=== PATIENT | female | born 1945 | race Caucasian/White ===

== ENCOUNTER 2021-05-26 11:56 | Observation (INO) ==
[2021-05-26 12:37] LABS: Basophils # (auto) 0.02 K/uL (0-0.2); Basophils % (auto) 0.2 %; Eosinophils # (auto) 0.01 K/uL (0-0.5); Eosinophils % (auto) 0.1 %; Hematocrit (blood only) 39.1 % (37-47); Immature Granulocytes # (auto) 0.01 K/uL (0.00-0.02); Immature Granulocytes % (auto) 0.1 %; Lymphocytes # (auto) 0.76 K/uL (1.2-3.4); Lymphocytes % (auto) 8.6 %; Mean Corpuscular Hemoglobin 29.3 pg (25-34); Mean Corpuscular Hgb Conc 33.2 g/dL (32-36); Mean Corpuscular Volume 88.3 fL (80-100); Mean Platelet Volume 9.9 fL (7.4-10.4); Monocytes # (auto) 0.44 K/uL (0.11-0.59); Neutrophils # (auto) 7.59 K/uL (1.4-6.5); Platelet Count 351 K/uL (130-400); RDW Coefficient of Variation 14.4 % (11.5-14.5); RDW Standard Deviation 46.6 fL (36.4-46.3); Red Blood Count 4.43 M/uL (4.2-5.4); White Blood Count 8.83 K/uL (4.8-10.8)
[2021-05-26 12:49] LABS: Appearance Urine Cloudy (Clear); Bacteria Urine Automated Negative (Negative); Bilirubin Urine Negative (Negative); Blood Urine Negative (Negative); Color Urine Dark Yellow; Epithelial Cell Urine Auto >30 /lpf (0-5); Glucose Urine UA 2+ (Negative); Ketones Urine 2+ (Negative); Leukocyte Esterase Urine 1+ (Negative); Nitrite Urine Negative (Negative); Protein Urine 1+ (Negative); RBC Urine Automated 0-4 /hpf (0-4); Specific Gravity Urine 1.031 (1.000-1.030); Urobilinogen Urine Negative (Negative); WBC Urine Automated >30 /hpf (0-5); pH Urine 5.5 (4.5-7.5)
[2021-05-26 12:55] LABS: Alanine Aminotransferase 47 (12-78); Aspartate Aminotransferase 30 U/L (15-37); BUN Creatinine Ratio 17.1 (10-20); Blood Urea Nitrogen 23 mg/dl (7-18); Calcium 9.8 mg/dl (8.5-10.1); Carbon Dioxide 23 mmol/L (21-32); Chloride 105 mmol/L (98-107); Est GFR (African American) 43.7 ml/min; Est GFR (Non-African American) 37.7 ml/min; Glucose 83 mg/dl (70-99); Sodium 138 mmol/L (136-145)
[2021-05-26 13:12] LABS: Alkaline Phosphatase 79 U/L (45-117); Bilirubin,Total 1.2 mg/dl (0.2-1); Globulin 4.2 gm/dl (2.5-4.0); Thyroid Stimulating Hormone 0.635 uIu/ml (0.300-4.500); Total Protein 8.2 gm/dl (6.4-8.2); Troponin I 0.368 ng/ml (0-0.045)
[2021-05-26] MEDS ORDERED: SODIUM CHLORIDE 0.9% 1000ML 500 ML IV ONE (13:14)
--- NOTE | 2021-05-26 13:23 | Emergency Department Note ---
Impression & Plan Weakness, Elevated troponin, Sweating, Herpes zoster ED Provider Note NAME: DIONNE OG AGE: 76 SEX: F : 1945 ARRIVES VIA: Walk-In INFORMANT: [Patient][son] ED PROVIDER(S): [Darrick Carvajal MD] CHIEF COMPLAINT: Cardiac assessment HISTORY OF PRESENT ILLNESS: The patient is a 76-year-old female who presents to the ER with several complaints. Yesterday, she was not as active and seemed more tired and fatigued. She complained of a decreased appetite. This morning, she woke up sweaty and was dizzy and weak. She seemed pale. The family and her caregiver at home noticed swelling around the right eye. The patient denies any cough or congestion. She is not short of breath. She currently denies any pain. There has been no reported vomiting or diarrhea. No urinary complaints. The patient did have an HI a few months ago, there was no reported chest pain today. Of note, the son provides most of the history. The patient does have some dementia. Given her dementia, no further history obtainable. REVIEW OF SYSTEMS: Unobtainable given her dementia. PMHx/PSHx: See Below SOCIAL HISTORY: See Below. PHYSICAL EXAM: GENERAL: Patient is in no acute distress. HEENT: No acute trauma, normocephalic atraumatic, mucous membranes moist, no na tan congestion, no scleral icterus. No conjunctivitis. Fluorescein staining of the right eye does not show any dendritic lesion. NECK: No stridor, no adenopathy, no meningismus, trachea is midline. LUNGS: Clear to auscultation bilaterally, no wheeze, no rhonchi, breath sounds equal. HEART: 2/6 systolic murmur, regular rate and rhythm. ABDOMEN: Soft, nontender, bowel sounds positive, no hernias, no peritonitis. EXTREMITIES: No cyanosis or edema, full range of motion of all the joints without pain or difficulty, no signs for acute trauma. NEUROLOGIC: Awake and alert, follows commands. No facial droop or speech slur. No cerebellar deficit or extremity drift. SKIN: Patient has a slightly raised, somewhat scaly, erythematous, blotchy rash around her right eye and there are a few lesions on the superior right scalp. No drainage. DIFFERENTIAL DIAGNOSIS: Herpes zoster, stroke, dehydration, sepsis, bacteremia, UTI, pneumonia, HI, electrolyte imbalance, anemia, among others EMERGENCY DEPARTMENT COURSE/PROCEDURES: ECG: Indication was weakness. The ECG shows a normal sinus rhythm with a left bundle branch block. The rate is 87. There is some subtle ST elevation in the anterior leads which I believe is secondary to the left bundle branch block. There is no PVC. The QTc is 500. No old ECGs available for comparison. Continuous Cardiac Monitoring: An order was placed for continuous cardiac monitoring. The monitor shows a rate of 84 with normal sinus rhythm. MEDICAL DECISION MAKING: There is no leukocytosis or worrisome anemia. There is a normal platelet count. There is some subtle renal insufficiency/dehydration with a creatinine of 1.36. No concerning electrolyte abnormality. Lactic acid level was not elevated making sepsis less likely. No concerning liver enzyme elevation. Patient appeared to be in a euthyroid state. Urinalysis did not show evidence for infection, some contamination was seen though. Covid testing returned negative. Chest film did not show any obvious pneumonia. Brain CT showed no acute bleed or mass-effect. ECG showed a sinus rhythm, no obvious ischemia. Cardiac enzyme testing x1 is elevated. This elevation could be consistent with cardiac injury or strain. On exam, the patient appeared to have herpes zoster around her right eye and a few lesions noted on her scalp. No focal neurologic findings. The patient received IV saline, 500 cc. She was given oral Valtrex. The patient presents with weakness, some lethargy and a rash on her right face. She has a history of a recent HI and had a bout of sweating earlier today. The patient's work-up suggests potential cardiac injury. She also appears to have herpes zoster--of note, no corneal lesions seen. I do think further care in the hospital is warranted. I did speak with the patient and case management. The on-call hospitalist was consulted. Past Med/Surg History Medical History CAD (coronary artery disease) Dementia HTN (hypertension) Social History Smoking Status: Never smoker Preferred Language: Faroese Feels Safe at Home: Yes Allergies Allergies Allergy/AdvReac Type Severity Reaction Status Date / Time No Known Allergies Allergy Unverified 05/26/21 14:56 Home Meds Home Medications Medication Instructions Recorded Confirmed alendronate 35 mg tablet 35 mg PO MO 05/26/21 05/26/21 aspirin 81 mg tablet,delayed 81 mg PO DAILY 05/26/21 05/26/21 release atorvastatin 80 mg tablet 80 mg PO PM 05/26/21 05/26/21 brimonidine 0.2 %-timolol 0.5 % 1 drp OPR BID 05/26/21 05/26/21 eye drops (Combigan) carvedilol 6.25 mg tablet 6.25 mg PO BID 05/26/21 05/26/21 cholecalciferol (vitamin D3) 50 50 mcg PO DAILY 05/26/21 05/26/21 mcg (2,000 unit) tablet (Vitamin D3) dapagliflozin 10 mg tablet 10 mg PO QAM 05/26/21 05/26/21 donepezil 5 mg tablet 5 mg PO HS 05/26/21 05/26/21 insulin glargine 100 unit/mL (3 20 unit SUBCUT QAM 05/26/21 05/26/21 mL) subcutaneous pen (bunkersofaaglar KwikPen U-100 Insulin) isosorbide mononitrate 30 mg 30 mg PO QAM 05/26/21 05/26/21 tablet,extended release 24 hr linagliptin 5 mg tablet (Tradjenta) 5 mg PO QPM 05/26/21 05/26/21 losartan 25 mg tablet 25 mg PO DAILY 05/26/21 05/26/21 metformin 1,000 mg tablet 1,000 mg PO BID 05/26/21 05/26/21 ticagrelor 90 mg tablet (Brilinta) 90 mg PO Q12H 05/26/21 05/26/21 Results & Data (ED) Vital Signs Vital Signs - 24 hr 05/26/21 11:59 05/26/21 12:54 Temperature 36.2 C L Temperature Source Temporal Artery Scan Pulse Rate 95 H Pulse Rate [Left Apical] 84 Pulse Rhythm [Left Apical] Regular Pulse Strength [Left Apical] Normal Respiratory Rate 18 16 Respiratory Effort / Characteristics Non-Labored Non-Labored Respiratory Depth Normal Normal Respiratory Pattern Regular Blood Pressure 127/80 Blood Pressure [Left Arm] 142/89 H Blood Pressure Mean 95 Blood Pressure Mean [Left Arm] 106 Blood Pressure Position [Left Arm] Sitting Pulse Oximetry 97 97 Oxygen Delivery Method Room Air Room Air Sepsis Recent Fever Within 48 Hours No Sepsis New/Unexplained Change in Mental Status No Sepsis Action Taken by Nursing No Action Required Home Medications Current Medication List: was personally reviewed by me Laboratory Data Attestation: I reviewed the patient's lab results. Result diagrams: 05/26/21 12:25 05/26/21 12:25 Lab Results 05/26/21 05/26/21 05/26/21 Range/Units 12:25 12: 12:25 WBC 8.83 (4.8-10.8) K/uL RBC 4.43 (4.2-5.4) M/uL Hgb 13.0 (12.0-16.0) g/dL Hct 39.1 (37-47) % MCV 88.3 (80-100) fL MCH 29.3 (25-34) pg MCHC 33.2 (32-36) g/dL RDW Std Deviation 46.6 H (36.4-46.3) fL RDW Coeff of Josh 14.4 (11.5-14.5) % Plt Count 351 (130-400) K/uL MPV 9.9 (7.4-10.4) fL Immature Gran % (Auto) 0.1 % Neut % (Auto) 86.0 % Lymph % (Auto) 8.6 % Park % (Auto) 5.0 % Eos % (Auto) 0.1 % Baso % (Auto) 0.2 % Neut # (Auto) 7.59 H (1.4-6.5) K/uL Lymph # (Auto) 0.76 L (1.2-3.4) K/uL Park # (Auto) 0.44 (0.11-0.59) K/uL Eos # (Auto) 0.01 (0-0.5) K/uL Baso # (Auto) 0.02 (0-0.2) K/uL Immature Gran # (Auto) 0.01 (0.00-0.02) K/uL Sodium 138 (136-145) mmol/L Potassium 4.0 (3.5-5.1) mmol/L Chloride 105 (98-107) mmol/L Carbon Dioxide 23 (21-32) mmol/L Anion Gap 11.0 (3-11) BUN 23 H (7-18) mg/dl Creatinine 1.36 H (0.6-1.2) mg/dl Est Cr Clr Drug Dosing Not Reportable Est GFR ( Amer) 43.7 ml/min Est GFR (Non-Af Amer) 37.7 ml/min BUN/Creatinine Ratio 17.1 (10-20) Glucose 83 (70-99) mg/dl Lactate (0.4-2.0) mmol/L Calcium 9.8 (8.5-10.1) mg/dl Total Bilirubin 1.2 H (0.2-1) mg/dl AST 30 (15-37) U/L ALT 47 (12-78) Alkaline Phosphatase 79 (45-117) U/L Troponin I 0.368 H* (0-0.045) ng/ml Total Protein 8.2 (6.4-8.2) gm/dl Albumin 4.0 (3.4-5.0) gm/dl Globulin 4.2 H (2.5-4.0) gm/dl Albumin/Globulin Ratio 1.0 (0.9-2) TSH 0.635 (0.300-4.500) uIu/ml Urine Color Dark Yellow Urine Appearance Cloudy A (Clear) Urine pH 5.5 (4.5-7.5) Ur Specific [place] 1.031 H (1.000-1.030) Urine Protein 1+ H (Negative) Urine Glucose (UA) 2+ H (Negative) Urine Ketones 2+ H (Negative) Urine Blood Negative (Negative) Urine Nitrite Negative (Negative) Urine Bilirubin Negative (Negative) Urine Urobilinogen Negative (Negative) Ur Leukocyte Esterase 1+ H (Negative) Urine WBC (Auto) >30 H (0-5) /hpf Urine RBC (Auto) 0-4 (0-4) /hpf U Hyaline Cast (Auto) 5-10 H (0-5) /lpf U Epithel Cells (Auto) >30 H (0-5) /lpf Urine Bacteria (Auto) Negative (Negative) Granular Casts 1-5 H (0) /lpf SARS-CoV-2, RNA, NAAT (NEGATIVE) 05/26/21 05/26/21 Range/Units 13:38 14:40 WBC (4.8-10.8) K/uL RBC (4.2-5.4) M/uL Hgb (12.0-16.0) g/dL Hct (37-47) % MCV (80-100) fL MCH (25-34) pg MCHC (32-36) g/dL RDW Std Deviation (36.4-46.3) fL RDW Coeff of Josh (11.5-14.5) % Plt Count (130-400) K/uL MPV (7.4-10.4) fL Immature Gran % (Auto) % Neut % (Auto) % Lymph % (Auto) % Park % (Auto) % Eos % (Auto) % Baso % (Auto) % Neut # (Auto) (1.4-6.5) K/uL Lymph # (Auto) (1.2-3.4) K/uL Park # (Auto) (0.11-0.59) K/uL Eos # (Auto) (0-0.5) K/uL Baso # (Auto) (0-0.2) K/uL Immature Gran # (Auto) (0.00-0.02) K/uL Sodium (136-145) mmol/L Potassium (3.5-5.1) mmol/L Chloride (98-107) mmol/L Carbon Dioxide (21-32) mmol/L Anion Gap (3-11) BUN (7-18) mg/dl Creatinine (0.6-1.2) mg/dl Est Cr Clr Drug Dosing Est GFR ( Amer) ml/min Est GFR (Non-Af Amer) ml/min BUN/Creatinine Ratio (10-20) Glucose (70-99) mg/dl Lactate 1.1 (0.4-2.0) mmol/L Calcium (8.5-10.1) mg/dl Total Bilirubin (0.2-1) mg/dl AST (15-37) U/L ALT (12-78) Alkaline Phosphatase (45-117) U/L Troponin I (0-0.045) ng/ml Total Protein (6.4-8.2) gm/dl Albumin (3.4-5.0) gm/dl Globulin (2.5-4.0) gm/dl Albumin/Globulin Ratio (0.9-2) TSH (0.300-4.500) uIu/ml Urine Color Urine Appearance (Clear) Urine pH (4.5-7.5) Ur Specific [place] (1.000-1.030) Urine Protein (Negative) Urine Glucose (UA) (Negative) Urine Ketones (Negative) Urine Blood (Negative) Urine Nitrite (Negative) Urine Bilirubin (Negative) Urine Urobilinogen (Negative) Ur Leukocyte Esterase (Negative) Urine WBC (Auto) (0-5) /hpf Urine RBC (Auto) (0-4) /hpf U Hyaline Cast (Auto) (0-5) /lpf U Epithel Cells (Auto) (0-5) /lpf Urine Bacteria (Auto) (Negative) Granular Casts (0) /lpf SARS-CoV-2, RNA, NAAT NEGATIVE (NEGATIVE) Administered Medications Discontinued Medications Sodium Chloride (Nss 1000ml) 500 mls @ 999 mls/hr IV .Q31M ONE Stop: 05/26/21 13:44 Last Infusion: 05/26/21 15:53 Dose: 0 mls/hr Documented by: [id number] Admin: 05/26/21 14:23 Dose: 999 mls/hr Documented by: [id number] Valacyclovir HCl (Valacyclovir Hcl 500 Mg Tablet) 1,000 mg PO NOW ONE Stop: 05/26/21 14:32 Last Admin: 05/26/21 14:37 Dose: 1,000 mg Documented by: [id number] Imaging Data Radiologist's Impression: Head CT 05/26/21 13:12 CT head/brain wo con CLINICAL HISTORY: 76 years-old Female with weakness. Acute weakness with diz ziness TECHNIQUE: Multiple axial CT images of the head were obtained without contrast. A dose lowering technique was utilized adhering to the principles of ALARA. CT DOSE: 537.48 mGy.cm COMPARISON: None. FINDINGS: No acute intracranial hemorrhage, midline shift, intracranial mass, hydrocephalus, territorial ischemia or abnormal extra-axial collection. Age-related involutional changes with ex vacuo ventriculomegaly. White matter hypodensities suggest chronic microvascular ischemic disease. Senescent calcifications of the basal ganglia. Cerebral vascular calcifications. The calvarium is intact. Prior bilateral lens repair. The paranasal sinuses, mastoid air cells, and middle ear cavities are clear. IMPRESSION: No acute intracranial abnormality. ACT 112: Negative or not required by law. The above report was generated using voice recognition software. It may contain grammatical, syntax or spelling errors. Electronically signed by: Lorenzo Salcedo M.D. 05/26/2021 2:10 PM Chest X-Ray 05/26/21 13:14 XR chest 1V portable HISTORY: 76 years-old Female weakness . Acute weakness COMPARISON: None TECHNIQUE: AP view of the chest FINDINGS: Cardiac silhouette is upper limits of normal in size with coronary arterial stents. No pneumothorax, large pleural effusion or overt pulmonary edema. Minimal atelectasis/scarring of the left lung base. Degenerative changes of the shoulders and spine. Minimal upper thoracic levoscoliosis. IMPRESSION: No acute process. ACT 112: Negative or not required by law. The above report was generated using voice recognition software. It may contain grammatical, syntax or spelling errors. Electronically signed by: Lorenzo Salcedo M.D. 05/26/2021 1:33 PM Discharge Plan Visit Data Chief Complaint: Cardiac Assessment Stated Complaint: DIZZY,TROUBLE WALKING,SWEATING,HX HEART PROBLEMS ED Provider: Darrick Carvajal Discharge Problem: Weakness, Elevated troponin, Sweating, Herpes zoster Patient Disposition: Admitted As Inpatient Condition: Fair Discharge Instructions Interventions: ED Discharge Assessment Last Done: 05/26/21 17:21
--- NOTE | 2021-05-26 13:34 | XRay Report ---
XR chest 1V portable HISTORY: 76 years-old Female weakness . Acute weakness COMPARISON: None TECHNIQUE: AP view of the chest FINDINGS: Cardiac silhouette is upper limits of normal in size with coronary arterial stents. No pneumothorax, large pleural effusion or overt pulmonary edema. Minimal atelectasis/scarring of the left lung base. Degenerative changes of the shoulders and spine. Minimal upper thoracic levoscoliosis. IMPRESSION: No acute process. ACT 112: Negative or not required by law. The above report was generated using voice recognition software. It may contain grammatical, syntax o r spelling errors. Electronically signed by: Lorenzo Salcedo M.D. 05/26/2021 1:33 PM
--- NOTE | 2021-05-26 14:11 | CT Scan Report ---
CT head/brain wo con CLINICAL HISTORY: 76 years-old Female with weakness. Acute weakness with dizziness TECHNIQUE: Multiple axial CT images of the head were obtained without contrast. A dose lowering tech nique was utilized adhering to the principles of ALARA. CT DOSE: 537.48 mGy.cm COMPARISON: None. FINDINGS: No acute intracranial hemorrhage, midline shift, intracranial mass, hydrocephalus, territorial ischem ia or abnormal extra-axial collection. Age-related involutional changes with ex vacuo ventriculomegal y. White matter hypodensities suggest chronic microvascular ischemic disease. Senescent calcification s of the basal ganglia. Cerebral vascular calcifications. The calvarium is intact. Prior bilateral lens repair. The paranasal sinuses, mastoid air cells, and m iddle ear cavities are clear. IMPRESSION: No acute intracranial abnormality. ACT 112: Negative or not required by law. The above report was generated using voice recognition software. It may contain grammatical, syntax o r spelling errors. Electronically signed by: Lorenzo Salcedo M.D. 05/26/2021 2:10 PM
[2021-05-26] MEDS ORDERED: valACYclovir HCL 500 MG TABLET PO ONE (14:31)
--- NOTE | 2021-05-26 15:09 | History & Physical Report ---
Date of Service May 26, 2021 Assessment & Plan (1) CAD (coronary artery disease): (2) Ischemic cardiomyopathy: (3) Chronic systolic CHF (congestive heart failure): Plan: - Admit to [facility] for observation - Most recent cardiac cath on 03/26/21 in [facility] showed multivessel disease of the small branch arteries and medical management was advised - Cont DAPT w/ Brilinta and asa 81 mg, losartan, carvedilol, imdur(Started earlier this month). - Lasix was stopped earlier this month due to kidney dysfuntion. - Trend cardiac biomarkers, initial set was positive at 0.368, will recheck now, chest pain free, may need to initiate heparin gtt if trending upward - EKG reviewed as above - Check 2 D echo pending - PT/OT consulted - Cardiology consulted - follows with Dr. Estes as an outpatient (4) HTN (hypertension): Plan: - Cont medication as above (5) HLD (hyperlipidemia): Plan: - Cont atorvastatin 80 mg daily (6) Dementia: Plan: - Progressive, unable to answer specific questions while at bedside but is pleasant overall. (7) DM type 2 (diabetes mellitus, type 2): Plan: - HOLD PO meds - Continue on ISS with accuchecks achs - Check a1c with am labs and lipids for completeness (8) CKD stage 3 secondary to diabetes: Plan: - Baseline of 1.4-1.5, recently taken off lasix ~ 2.5 wks ago. - May continue losartan for now - Cr 1.36 and BUN 23 on admission DVT PPx: - teds, scds, aspirin and Brilinta CODE: Full Dispo: From home, likely to remain in the hospital x 1-2 days History of Present Illness Chief Complaint: Chest pain Primary Care Provider: Marika Neff MD This is a 76 yo F with PMHx of CAD s/p multiple coronary interventions dating back to 2011, LAD and LAD diagonal 2017, stent rotational arthrectomy, chronic systolic CHF, ischemic cardiomyopathy, LVEF of 30%, hypertension, HLD, CKD stage III, DM type II, and progressive dementia. She underwent her most recent cardiac cath in [place] in March 2021 which showed multivessel disease involving small branch arteries, stents were patent, and medical management was advised. She was also started on Brilinta at that time, Lasix was reduced to 20 mg daily, and titrated on other cardiac medications. She follows with Dr. Estes primarily as an outpatient. She saw her screening nurse, Dr. Estes earlier this month, and at that time Lasix was discontinued due to increased kidney function. Pt presents today because son brought her here. Pt is a very poor historian and her family is not at bedside. Reportedly she became diaphoretic twice this morning, once upon getting up out of bed then again later this morning. She denies any current chest pain, sob, nausea, or any other complaint currently. Troponin bumped at 0.3 today but no other baseline to me refer to. Her EKG also appears to be slightly abnormal. She is chest pain free now. ER evaluated and notes what appears like shingles around R eye and scalp, doesn't involve the eye. She complainedof eye pain earlier today but none currently. There is no strength testing abnormalities or stroke like symptoms. Started on one dose of Valtrex. Her Echo is being performed at bedside. Allergies Allergy/AdvReac Type Severity Reaction Status Date / Time No Known Allergies Allergy Unverified 05/26/21 14:56 Home Medications Medication Instructions Recorded Confirmed Type alendronate 35 mg tablet 35 mg PO MO 05/26/21 05/26/21 History aspirin 81 mg tablet,delayed 81 mg PO DAILY 05/26/21 05/26/21 History release atorvastatin 80 mg tablet 80 mg PO PM 05/26/21 05/26/21 History brimonidine 0.2 %-timolol 0.5 % 1 drp OPR BID 05/26/21 05/26/21 History eye drops (Combigan) carvedilol 6.25 mg tablet 6.25 mg PO BID 05/26/21 05/26/21 History cholecalciferol (vitamin D3) 50 50 mcg PO DAILY 05/26/21 05/26/21 History mcg (2,000 unit) tablet (Vitamin D3) dapagliflozin 10 mg tablet 10 mg PO QAM 05/26/21 05/26/21 History donepezil 5 mg tablet 5 mg PO HS 05/26/21 05/26/21 History insulin glargine 100 unit/mL (3 20 unit SUBCUT QAM 05/26/21 05/26/21 History mL) subcutaneous pen (Basaglar KwikPen U-100 Insulin) isosorbide mononitrate 30 mg 30 mg PO QAM 05/26/21 05/26/21 History tablet,extended release 24 hr linagliptin 5 mg tablet (Tradjenta) 5 mg PO QPM 05/26/21 05/26/21 History losartan 25 mg tablet 25 mg PO DAILY 05/26/21 05/26/21 History metformin 1,000 mg tablet 1,000 mg PO BID 05/26/21 05/26/21 History ticagrelor 90 mg tablet (Brilinta) 90 mg PO Q12H 05/26/21 05/26/21 History Past Med/Surg History Medical History CAD (coronary artery disease) Dementia HTN (hypertension) Social History Smoking Status: Never smoker Preferred Language: Faroese Feels Safe at Home: Yes Review of Systems Review of Systems: Constitutional: No fever, sweats or chills Eyes: No diplopia, no worsening or blurred vision ENT: normal hearing, no trouble swallowing Respiratory: No cough, sputum, dyspnea at rest or on exertion Cardiovascular: No chest pain, tightness or palpitations Abdomen: No pain, nausea, vomiting, diarrhea or constipation Musculoskeletal: No joint pain, calf pain, swelling Neurologic: No weakness, numbness/tingling, or balance problems Psychiatric: No anxiety or depression Skin: No rash or itch Physical Exam Physical Exam: General: awake, alert, no apparent distress, appears comfortable, thin Head: Normocephalic, atraumatic ENT: PERRL, EOMI, no pharyngeal exudate, mucous membranes moist. R eye with surrounding erythema like rash Chest: Clear to auscultation, on room air, no adventitious breath sounds Cardiac: Regular rate and rhythm, no murmur, no JVD, normal peripheral pulses, good capillary refill Abdominal: NABS x 4 quadrants, soft, nondistended, nontender to palpation, no rebound or guarding Extremities: Normal inspection, no peripheral edema or erythema, calfs nontender to palpation Psych: Normal mood and affect Neuro: AAO x 3, unable to participate in significant history due to dementia, asnswers appropriately but "doesn't remember" many specifics, no gross motor deficits, speech is clear, no peripheral sensory deficits Results & Data Results & Data ([facility]) Vital Signs (Past 12 Hours) Vital Signs Temp Pulse Pulse Resp BP BP Pulse Ox 05/26/21 12:54 84 16 142/89 H 97 05/26/21 11:59 36.2 C L 95 H 18 127/80 97 Laboratory Results 05/26/21 13:35 Aerobic Blood Culture - Pending Blood Anaerobic Blood Culture - Pending 05/26/21 13:38 Aerobic Blood Culture - Pending Blood Anaerobic Blood Culture - Pending 05/26/21 12:25 Urine Culture - Pending Urine,Clean Catch 05/26/21 05/26/21 05/26/21 14:40 13:38 12:25 WBC RBC Hgb Hct MCV MCH MCHC RDW Std Deviation RDW Coeff of Josh Plt Count MPV Immature Gran % (Auto) Neut % (Auto) Lymph % (Auto) [place] % (Auto) Eos % (Auto) Baso % (Auto) Neut # (Auto) Lymph # (Auto) [place] # (Auto) Eos # (Auto) Baso # (Auto) Immature Gran # (Auto) Sodium Potassium Chloride Carbon Dioxide Anion Gap BUN Creatinine Est Cr Clr Drug Dosing Est GFR ( Amer) Est GFR (Non-Af Amer) BUN/Creatinine Ratio Glucose Lactate 1.1 Calcium Total Bilirubin AST ALT Alkaline Phosphatase Troponin I Total Protein Albumin Globulin Albumin/Globulin Ratio TSH Urine Color Dark Yellow Urine Appearance Cloudy A Urine pH 5.5 Ur Specific [place] 1.031 H Urine Protein 1+ H Urine Glucose (UA) 2+ H Urine Ketones 2+ H Urine Blood Negative Urine Nitrite Negative Urine Bilirubin Negative Urine Urobilinogen Negative Ur Leukocyte Esterase 1+ H Urine WBC (Auto) >30 H Urine RBC (Auto) 0-4 U Hyaline Cast (Auto) 5-10 H U Epithel Cells (Auto) >30 H Urine Bacteria (Auto) Negative Granular Casts 1-5 H SARS-CoV-2, RNA, NAAT NEGATIVE 05/26/21 05/26/21 12:25 12:25 WBC 8.83 RBC 4.43 Hgb 13.0 Hct 39.1 MCV 88.3 MCH 29.3 MCHC 33.2 RDW Std Deviation 46.6 H RDW Coeff of Josh 14.4 Plt Count 351 MPV 9.9 Immature Gran % (Auto) 0.1 Neut % (Auto) 86.0 Lymph % (Auto) 8.6 [place] % (Auto) 5.0 Eos % (Auto) 0.1 Baso % (Auto) 0.2 Neut # (Auto) 7.59 H Lymph # (Auto) 0.76 L [place] # (Auto) 0.44 Eos # (Auto) 0.01 Baso # (Auto) 0.02 Immature Gran # (Auto) 0.01 Sodium 138 Potassium 4.0 Chloride 105 Carbon Dioxide 23 Anion Gap 11.0 BUN 23 H Creatinine 1.36 H Est Cr Clr Drug Dosing Not Reportable Est GFR ( Amer) 43.7 Est GFR (Non-Af Amer) 37.7 BUN/Creatinine Ratio 17.1 Glucose 83 Lactate Calcium 9.8 Total Bilirubin 1.2 H AST 30 ALT 47 Alkaline Phosphatase 79 Troponin I 0.368 H* Total Protein 8.2 Albumin 4.0 Globulin 4.2 H Albumin/Globulin Ratio 1.0 TSH 0.635 Urine Color Urine Appearance Urine pH Ur Specific [place] Urine Protein Urine Glucose (UA) Urine Ketones Urine Blood Urine Nitrite Urine Bilirubin Urine Urobilinogen Ur Leukocyte Esterase Urine WBC (Auto) Urine RBC (Auto) U Hyaline Cast (Auto) U Epithel Cells (Auto) Urine Bacteria (Auto) Granular Casts SARS-CoV-2, RNA, NAAT Diagnostic Findings Head CT 05/26/21 13:12 CT head/brain wo con CLINICAL HISTORY: 76 years-old Female with weakness. Acute weakness with dizziness TECHNIQUE: Multiple axial CT images of the head were obtained without contrast. A dose lowering technique was utilized adhering to the principles of ALARA. CT DOSE: 537.48 mGy.cm COMPARISON: None. FINDINGS: No acute intracranial hemorrhage, midline shift, intracranial mass, hydrocephalus, territorial ischemia or abnormal extra-axial collection. Age- related involutional changes with ex vacuo ventriculomegaly. White matter hypodensities suggest chronic microvascular ischemic disease. Senescent calcifications of the basal ganglia. Cerebral vascular calcifications. The calvarium is intact. Prior bilateral lens repair. The paranasal sinuses, mastoid air cells, and middle ear cavities are clear. IMPRESSION: No acute intracranial abnormality. ACT 112: Negative or not required by law. The above report was generated using voice recognition software. It may contain grammatical, syntax or spelling errors. Electronically signed by: Lorenzo Salcedo M.D. 05/26/2021 2:10 PM Chest X-Ray 05/26/21 13:14 XR chest 1V portable HISTORY: 76 years-old Female weakness . Acute weakness COMPARISON: None TECHNIQUE: AP view of the chest FINDINGS: Cardiac silhouette is upper limits of normal in size with coronary arterial stents. No pneumothorax, large pleural effusion or overt pulmonary edema. Minimal atelectasis/scarring of the left lung base. Degenerative changes of the shoulders and spine. Minimal upper thoracic levoscoliosis. IMPRESSION: No acute process. ACT 112: Negative or not required by law. The above report was generated using voice recognition software. It may contain grammatical, syntax or spelling errors. Electronically signed by: Lorenzo Salcedo M.D. 05/26/2021 1:33 PM ECG Additional Comments: 26-MAY-2021 12:22:02 [facility]-EDSTAT ROUTINE RETRIEVAL Poor data quality, interpretation may be adversely affected Normal sinus rhythm Possible Left atrial enlargement Left axis deviation Left bundle branch block Abnormal ECG No previous ECGs available 25mm/s 10mm/mV 150Hz 9.0.9 12SL 241 NEGRO: 13 Unconfirmed Vent. rate 87 BPM IN interval 172 ms QRS duration 128 ms QT/QTc 416/500 ms Code Status & VTE Plan Code Status Full code Supervising Physician Co-Signing Physician Notes I saw this patient with the physician recruiting assistant, I participated in the history, physical, review of systems, and physical exam. I reviewed the medications with the patient and the physician recruiting assistant and helped reconcile the medications. I helped take a detailed family and social history as well. I formulated the assessment and plan personally with the physician recruiting assistant and went over it with the patient. Physical Exam Gen-AAO x 2, NAD, Afebrile, Demented, Pleasant Head-NCAT, EOMI, PERRLA, Anicteric Sclera, No Posterior Pharyngeal Erythema Neck-Supple, No JVD, No Thyromegaly, No Masses, No LAD, No Bruits Lungs-Clear to Auscultation Bilaterally, No Rales, No Rhonchi, No Wheezing, No Crepitus Chest-No S4, +S1, +S2, No S3, No Murmurs, No Rubs, No Gallops, No Ectopy Abdomen-Soft, Bowel Sounds Present, Non Tender, Non Distended, No Hepatomegaly, No Splenomegaly, No Palpable Masses, No Rebound, No Rigidity, No Guarding Musculoskeletal-Full Range of Motion Bilaterally, No CVAT Extremities-No Cyanosis, No Clubbing, No Edema Nuero-Cranial Nerves II-XII grossly intact, Motor WNL, DTRs WNL, Strength WNL, Non Focal Psych-Normal Mood
[2021-05-26] MEDS ORDERED: ONDANSETRON INJ 2 MG/ML 2 ML VIAL IV PRN (15:24)
[2021-05-26] MEDS ORDERED: ACETAMINOPHEN 325 MG TAB PO PRN (15:24)
[2021-05-26] MEDS ORDERED: GLUCOSE 10 TABS/TUBE PO PRN (17:23)
[2021-05-26] MEDS ORDERED: CARBOHYDRATES FOR HYPOGLYCEMIA PO PRN (17:23)
[2021-05-26] MEDS ORDERED: DEXTROSE 50% 50 ML SYRINGE IV PRN (17:23)
[2021-05-26] MEDS ORDERED: GLUCOSE 40% GEL 15 GM TUBE PO PRN (17:23)
[2021-05-26] MEDS ORDERED: GLUCAGON FOR INJ 1 MG VIAL SQ PRN (17:23)
[2021-05-26] MEDS ORDERED: NON-FORMULARY MEDICATION (Alendronate 35 mg Tablet) PO SCH (17:23)
[2021-05-26] MEDS: INSULIN ASPART PER UNIT SC SCH ×2 (19:55→20:35)
[2021-05-26] MEDS: carvediloL 6.25 MG TAB PO SCH (20:34)
[2021-05-26] MEDS: TICAGRELOR 90 MG TAB PO SCH (20:36)
[2021-05-26] MEDS ORDERED: ATORVASTATIN 40 MG TAB PO SCH (21:00)
[2021-05-26] MEDS ORDERED: DONEPEZIL HCL 5 MG TAB PO SCH (21:00)
[2021-05-27] MEDS ORDERED: ORDER AWAITING ACTION [Brimonidine-Timolol [Combigan] 0.2-0.5 % Drops] SCH
[2021-05-27 05:25] LABS: Hematocrit (blood only) 33.1 % (37-47); Mean Corpuscular Hemoglobin 29.3 pg (25-34); Mean Corpuscular Hgb Conc 33.2 g/dL (32-36); Platelet Count 302 K/uL (130-400); RDW Coefficient of Variation 14.6 % (11.5-14.5); RDW Standard Deviation 47.4 fL (36.4-46.3); Red Blood Count 3.76 M/uL (4.2-5.4); White Blood Count 8.16 K/uL (4.8-10.8)
[2021-05-27 05:57] LABS: Alanine Aminotransferase 36 (12-78); Albumin Level 3.2 gm/dl (3.4-5.0); Aspartate Aminotransferase 23 U/L (15-37); BUN Creatinine Ratio 17.8 (10-20); Blood Urea Nitrogen 25 mg/dl (7-18); Calcium 9.2 mg/dl (8.5-10.1); Carbon Dioxide 25 mmol/L (21-32); Chloride 109 mmol/L (98-107); Cholesterol 110 mg/dl (0-200); Est GFR (African American) 42.9 ml/min; Glucose 67 mg/dl (70-99); Potassium 3.8 mmol/L (3.5-5.1); Sodium 140 mmol/L (136-145); Triglycerides 91 mg/dl (0-150); VLDL Cholesterol 18 mg/dl
[2021-05-27 06:16] LABS: Albumin Globulin Ratio 0.9 (0.9-2); Alkaline Phosphatase 63 U/L (45-117); Bilirubin,Total 0.8 mg/dl (0.2-1); Chol HDL Ratio 2; Globulin 3.4 gm/dl (2.5-4.0); HDL Cholesterol 55 mg/dl; LDL Cholesterol Calculated 37 mg/dl; Total Protein 6.6 gm/dl (6.4-8.2)
[2021-05-27 07:35] LABS: Estimated Average Glucose 154 mg/dl
--- NOTE | 2021-05-27 08:02 | Cardiology Consultation ---
Date of Consultation May 27, 2021 Assessment & Plan (1) Elevated troponin: (2) Weakness: (3) Sweating: (4) Herpes zoster: (5) Dementia: (6) CAD (coronary artery disease): (7) HTN (hypertension): (8) Ischemic cardiomyopathy: (9) CKD stage 3 secondary to diabetes: (10) DM type 2 (diabetes mellitus, type 2): Minimally elevated troponin in the setting of chronic kidney disease. No objective signs of acute ischemia. Do not believe slight troponin elevation represents acute coronary syndrome. Will increase Imdur to 60 mg daily. All other outpatient cardiac medication should be continued. No further cardiac testing or intervention necessary at this time. History of Present Illness Reason for Consultation: elevated trop Requesting Physician: Jalen Attending Physician: Kelton Rao DO History of Present Illness Mrs. Snyder is a very pleasant yet significantly demented 76-year-old woman who is very well-known to our cardiology practice. She reportedly was brought to the emergency department by her family after 2 reported episodes of diaphoresis. The patient is significantly demented and is not sure why she is at the hospital. She denies any complaints currently. Family not at the bedside. History obtained through review of medical records. Currently denies experiencing chest pain, shortness of breath, palpitations, lightheadedness, dizziness or syncope. Past medical hx: 1. CAD with stable angina status post multiple coronary interventions dating back to 2011, LAD and LAD diag 2017, stent and rotational arthrectomy proximalcomplicated by acute stent thrombosis and ICU stay a. Most recent cardiac catheterization in [place] 03/2021 showed multivessel disease of the small branch arteries, stents patent, medical management advised. 2. Chronic systolic CHF, Ischemic cardiomyopathy, LVEF 32% 3. Hypertension 4. Dyslipidemia, LDL goal below 70 5. CKD stage IIIB 6. Type 2 diabetes 7. Progressive dementia 8. Cough with lisinopril Allergies Allergy/AdvReac Type Severity Reaction Status Date / Time No Known Allergies Allergy Unverified 05/26/21 14:56 Home Medications Medication Instructions Recorded Confirmed Type alendronate 35 mg tablet 35 mg PO MO 05/26/21 05/26/21 History aspirin 81 mg tablet,delayed 81 mg PO DAILY 05/26/21 05/26/21 History release atorvastatin 80 mg tablet 80 mg PO PM 05/26/21 05/26/21 History brimonidine 0.2 %-timolol 0.5 % 1 drp OPR BID 05/26/21 05/26/21 History eye drops (Combigan) carvedilol 6.25 mg tablet 6.25 mg PO BID 05/26/21 05/26/21 History cholecalciferol (vitamin D3) 50 50 mcg PO DAILY 05/26/21 05/26/21 History mcg (2,000 unit) tablet (Vitamin D3) dapagliflozin 10 mg tablet 10 mg PO QAM 05/26/21 05/26/21 History donepezil 5 mg tablet 5 mg PO HS 05/26/21 05/26/21 History insulin glargine 100 unit/mL (3 20 unit SUBCUT QAM 05/26/21 05/26/21 History mL) subcutaneous pen (Basaglar KwikPen U-100 Insulin) isosorbide mononitrate 30 mg 30 mg PO QAM 05/26/21 05/26/21 History tablet,extended release 24 hr linagliptin 5 mg tablet (Tradjenta) 5 mg PO QPM 05/26/21 05/26/21 History losartan 25 mg tablet 25 mg PO DAILY 05/26/21 05/26/21 History metformin 1,000 mg tablet 1,000 mg PO BID 05/26/21 05/26/21 History ticagrelor 90 mg tablet (Brilinta) 90 mg PO Q12H 05/26/21 05/26/21 History Patient History Medical History CAD (coronary artery disease) Dementia HTN (hypertension) Social History Smoking Status: Never smoker Preferred Language: Greek Feels Safe at Home: Yes Review of Systems Review of Systems: All systems reviewed & are unremarkable except as noted in HPI & below Physical Exam Physical Exam: General: Awake, alert and oriented x 3. No acute distress. HEENT: Normocephalic, atraumatic. Pupils equal, round and reactive to light and accommodation. Extraocular muscles are intact. Anicteric sclera. Moist mucous membranes. Neck: No JVD. No bruit. Cardiovascular: Regular. Positive S-4. Normal S-1 and S-2. No S-3. No murmurs or rubs. Pulmonary: Clear to auscultation B/L. No rales, rhonchi or wheezing Abdomen: Bowel sounds x 4, soft. No rebound, guarding or tenderness. No organomegaly. Extremities: No clubbing, cyanosis or edema. +2 pedal pulses bilaterally. Skin: Warm and dry. Results & Data ([facility]) Vital Signs (Past 12 Hours) Vital Signs Temp Pulse Pulse Resp BP BP Pulse Ox 05/27/21 04:20 36.9 C 74 16 142/64 H 98 05/26/21 23:00 79 22 158/65 H (1) Herpes zoster Herpes zoster complications: without complications Qualified Code(s): B02.9 - Zoster without complications
[2021-05-27] MEDS: TICAGRELOR 90 MG TAB PO SCH (08:28)
[2021-05-27] MEDS: carvediloL 6.25 MG TAB PO SCH (08:28)
[2021-05-27] MEDS ORDERED: LOSARTAN POTASSIUM 25 MG TAB PO SCH (09:00)
[2021-05-27] MEDS ORDERED: ISOSORBIDE MONO EXTENDED REL 30 MG TABCR PO SCH (09:00)
[2021-05-27] MEDS ORDERED: INSULIN GLARGINE SOLOSTAR 100 UNITS/ML 3 ML PEN SQ SCH (09:00)
[2021-05-27] MEDS ORDERED: ASPIRIN 81 MG ECTAB PO SCH (09:00)
[2021-05-27] MEDS ORDERED: CHOLECALCIFEROL 1,000 UNITS 25 MCG TAB PO SCH (09:00)
[2021-05-27] MEDS ORDERED: ISOSORBIDE MONO EXTENDED REL 30 MG TABCR PO ONE (09:30)
[2021-05-27] MEDS: INSULIN ASPART PER UNIT SC SCH (09:35)
--- NOTE | 2021-05-27 09:39 | Discharge Summary ---
Date of Service May 27, 2021 Admission HPI Per Admitting Provider This is a 76 yo F with PMHx of CAD s/p multiple coronary interventions dating back to 2011, LAD and LAD diagonal 2017, stent rotational arthrectomy, chronic systolic CHF, ischemic cardiomyopathy, LVEF of 30%, hypertension, HLD, CKD stage III, DM type II, and progressive dementia. She underwent her most recent cardiac cath in [place] in March 2021 which showed multivessel disease involving small branch arteries, stents were patent, and medical management was advised. She was also started on Brilinta at that time, Lasix was reduced to 20 mg daily, and titrated on other cardiac medications. She follows with Dr. Estes primarily as an outpatient. 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 Estes earlier this month, and at that time Lasix was discontinued due to increased kidney function. Pt presents today because son brought her here. Pt is a very poor historian and her family is not at bedside. Reportedly she became diaphoretic twice this morning, once upon getting up out of bed then again later this morning. She denies any current chest pain, sob, nausea, or any other complaint currently. Troponin bumped at 0.3 today but no other baseline to me refer to. Her EKG also appears to be slightly abnormal. She is chest pain free now. ER evaluated and notes what appears like shingles around R eye and scalp, doesn't involve the eye. She complainedof eye pain earlier today but none currently. There is no strength testing abnormalities or stroke like symptoms. Started on one dose of Valtrex. Her Echo is being performed at bedside. Admission Exam Per Admitting Provider General: awake, alert, no apparent distress, appears comfortable, thin Head: Normocephalic, atraumatic ENT: PERRL, EOMI, no pharyngeal exudate, mucous membranes moist. R eye with surrounding erythema like rash Chest: Clear to auscultation, on room air, no adventitious breath sounds Cardiac: Regular rate and rhythm, no murmur, no JVD, normal peripheral pulses, good capillary refill Abdominal: NABS x 4 quadrants, soft, nondistended, nontender to palpation, no rebound or guarding Extremities: Normal inspection, no peripheral edema or erythema, calfs nontender to palpation Psych: Normal mood and affect Neuro: AAO x 3, unable to participate in significant history due to dementia, asnswers appropriately but "doesn't remember" many specifics, no gross motor deficits, speech is clear, no peripheral sensory deficits Principal Diagnosis (1) CAD (coronary artery disease): (2) Ischemic cardiomyopathy: (3) Chronic systolic CHF (congestive heart failure): (4) HTN (hypertension): (5) HLD (hyperlipidemia): (6) Dementia: (7) DM type 2 (diabetes mellitus, type 2): (8) CKD stage 3 secondary to diabetes: Discharge Exam see below Discharge Data Allergies Allergy/AdvReac Type Severity Reaction Status Date / Time No Known Allergies Allergy Unverified 05/26/21 14:56 Consultations 05/26/21 15:16 ED Decision to Admit Stat 05/26/21 15:24 Consult Cardiology Routine Procedures Performed Echo-EF 30-35% Ordered Studies 05/26/21 13:12 CT head/brain wo con Stat Hospital Course (1) CAD (coronary artery disease): (2) Ischemic cardiomyopathy: (3) Chronic systolic CHF (congestive heart failure): - Most recent cardiac cath on 03/26/21 in [facility] showed multivessel disease of the small branch arteries and medical management was advised - Cont DAPT w/ Brilinta and asa 81 mg, losartan, carvedilol, imdur(Started earlier this month). - Lasix was stopped earlier this month due to kidney dysfuntion. - Trend cardiac biomarkers, initial set was positive at 0.368, will recheck now, chest pain free, may need to initiate heparin gtt if trending upward - EKG reviewed as above - Check 2 D echo pending - PT/OT consulted - Cardiology on case DC home, Increase Imdur to 60 (4) HTN (hypertension): - Cont medication as above (5) HLD (hyperlipidemia): - Cont atorvastatin 80 mg daily (6) Dementia: - Progressive, unable to answer specific questions while at bedside but is pleasant overall. (7) DM type 2 (diabetes mellitus, type 2): - HOLD PO meds - Continue on ISS with accuchecks achs - Check a1c with am labs and lipids for completeness (8) CKD stage 3 secondary to diabetes: - Baseline of 1.4-1.5, recently taken off lasix ~ 2.5 wks ago. - May continue losartan for now - Cr 1.36 and BUN 23 on admission DVT PPx: - teds, scds, aspirin and Brilinta CODE: Full Dispo: DC home, Increase Imdur to 60, f/u c cards in the office ROS-No Headache, No Visual Changes, No Nausea, No Vomiting, No Fever, No Chills, No Neck Pain or Stiffness, No Chest Pain, No Palpitations, No SOB, No GARCIA, No Cough, No Sputum, No Wheezing, No Abdominal Pain, No Diarrhea, No Hematemesis, No Hemoptysis, No Unexpected Weight Loss, No Flank pain, No Melena, No Hematochezia, No Frequency, No Urgency, No Burning, No Hematuria, No Rashes, No Diaphoresis. Appetite is Normal Physical Exam Gen-AAO x 3, NAD, Afebrile, Memory loss, walking around [employer] station Head-NCAT, EOMI, PERRLA, Anicteric Sclera, No Posterior Pharyngeal Erythema Neck-Supple, No JVD, No Thyromegaly, No Masses, No LAD, No Bruits Lungs-Clear to Auscultation Bilaterally, No Rales, No Rhonchi, No Wheezing, No Crepitus Chest-No S4, +S1, +S2, No S3, No Murmurs, No Rubs, No Gallops, No Ectopy Abdomen-Soft, Bowel Sounds Present, Non Tender, Non Distended, No Hepatomegaly, No Splenomegaly, No Palpable Masses, No Rebound, No Rigidity, No Guarding Musculoskeletal-Full Range of Motion Bilaterally, No CVAT Extremities-No Cyanosis, No Clubbing, No Edema Nuero-Cranial Nerves II-XII grossly intact, Motor WNL, DTRs WNL, Strength WNL, Non Focal Psych-Normal Mood, Demented Total Time Total Time Spent Total Time Spent (In Minutes): 45 mins Total Time Includes: Examination of the Patient, Discharge Planning, Medication Reconciliation and Communication With Other Providers Discharge Plan Discharge Items Patient Disposition: Home - Self-Care Reason For Visit: CHEST PAIN X 2, HX CAD, [place] Discharge Diagnosis: (1) CAD (coronary artery disease): (2) Ischemic cardiomyopathy: (3) Chronic systolic CHF (congestive heart failure): (4) HTN (hypertension): (5) HLD (hyperlipidemia): (6) Dementia: (7) DM type 2 (diabetes mellitus, type 2): (8) CKD stage 3 secondary to diabetes: Condition on Discharge: Fair Activity: Resume your previous activity Lifting: Gradually increase as tolerated Bathing: No limitations Sexual Activity: When tolerated Exercise/Sports: Gradually increase as tolerated Weightbearing: Full weightbearing Non-emergency contact: Primary Care Provider and Direct Care Provider Follow-up/Referrals: Bryan Estes MD [Physician] - (Follow up in 6-8 weeks) Marika Neff MD [Primary Care Provider] - Diet: Carb Consistent or DM2 and Heart Healthy Addtl Attending Provider Instructions: None Pending Studies at Discharge: No Stand-Alone Forms: My [facility] [employer], Smoking Cessation Medications and DC Order Prescriptions: New isosorbide mononitrate 60 mg Tablet Extended Release 24 Hr 60 mg PO QAM Qty: 30 RF: 0 Continued atorvastatin 80 mg Tablet 80 mg PO PM RF: 0 carvedilol 6.25 mg Tablet 6.25 mg PO BID RF: 0 donepezil 5 mg Tablet 5 mg PO HS RF: 0 aspirin 81 mg Tablet,Delayed Release (Dr/Ec) 81 mg PO DAILY RF: 0 alendronate 35 mg Tablet 35 mg PO MO RF: 0 metformin 1,000 mg Tablet 1,000 mg PO BID RF: 0 losartan 25 mg Tablet 25 mg PO DAILY RF: 0 Basaglar KwikPen U-100 Insulin 100 unit/mL (3 mL) Insulin Pen 20 unit SUBCUT QAM RF: 0 Combigan 0.2-0.5 % Drops 1 drp OPR BID RF: 0 cholecalciferol (vitamin D3) [Vitamin D3] 50 mcg (2,000 unit) Tablet 50 mcg PO DAILY RF: 0 Tradjenta 5 mg Tablet 5 mg PO QPM RF: 0 Brilinta 90 mg Tablet 90 mg PO Q12H RF: 0 dapagliflozin 10 mg Tablet 10 mg PO QAM RF: 0 Discontinued isosorbide mononitrate 30 mg Tablet Extended Release 24 Hr 30 mg PO QAM RF: 0 Discharge Orders: Discharge Order (Routine); Ordered 05/27/21 Ordered By: Kelton Martinez/Other Patient Handouts: High Blood Sugar (Hyperglycemia), Hypoglycemia (Low Blood Sugar), Managing Type 2 Diabetes Admission Data Admit Date/Time: 05/26/21 15:24 Attending Provider: Kelton Rao Admit Provider: Kelton Rao Primary Care Provider: Marika Neff Other Providers: Bryan Estes ; Kelton Rao
[2021-05-28] MEDS ORDERED: ISOSORBIDE MONO EXTENDED REL 60 MG TABCR PO SCH (09:00)
--- NOTE | 2021-05-29 05:40 | Electrocardiogram Report ---
Test Reason : Blood Pressure : / mmHG Vent. Rate : 087 BPM Atrial Rate : 087 BPM P-R Int : 172 ms QRS Dur : 128 ms QT Int : 416 ms P-R-T Axes : 056 -73 103 degrees QTc Int : 500 ms Poor data quality, interpretation may be adversely affected Normal sinus rhythm Possible Left atrial enlargement Left axis deviation Left bundle branch block Abnormal ECG No previous ECGs available Confirmed by Guille Reyes ([id number]) on 05/29/2021 5:40:19 AM Referred By: Confirmed By:Guille Reyes
--- NOTE | 2021-05-29 06:24 | Electrocardiogram Report ---
Test Reason : Blood Pressure : / mmHG Vent. Rate : 067 BPM Atrial Rate : 067 BPM P-R Int : 166 ms QRS Dur : 136 ms QT Int : 456 ms P-R-T Axes : 029 -72 110 degrees QTc Int : 481 ms Normal sinus rhythm Possible Left atrial enlargement Left axis deviation Left bundle branch block Abnormal ECG When compared with ECG of 26-MAY-2021 12:22, No significant change was found Confirmed by Guille Reyes ([id number]) on 05/29/2021 6:24:23 AM Referred By: Bryan Estes Confirmed By:Guille Reyes
== END 2021-05-27 12:25 | disposition home or self-care (01) ==
LOC: ED 11:56 → EDINP 11:56 → SUATTDRO 15:24 → EDINP 17:21
DX: Z79.82 Long term (current) use of aspirin; B02.9 Zoster without complications; I11.0 Hypertensive heart disease with heart failure; I50.22 Chronic systolic (congestive) heart failure; F03.90 Unspecified dementia, unspecified severity, without behavioral disturbance, psychotic disturbance, mood disturbance, and anxiety; R53.1 Weakness; Z79.4 Long term (current) use of insulin; Z20.822 Contact with and (suspected) exposure to COVID-19; Z79.899 Other long term (current) drug therapy; I25.2 Old myocardial infarction; R77.8 Other specified abnormalities of plasma proteins; I25.10 Atherosclerotic heart disease of native coronary artery without angina pectoris; N18.30 Chronic kidney disease, stage 3 unspecified; E11.22 Type 2 diabetes mellitus with diabetic chronic kidney disease; E78.5 Hyperlipidemia, unspecified

== ENCOUNTER 2021-06-01 19:25 | Inpatient (IN) ==
[2021-06-01] MEDS ORDERED: OPTIRAY 320 125ml IV ONE (19:37)
[2021-06-01] MEDS ORDERED: ACETAMINOPHEN 500 MG TAB PO STA (19:52)
[2021-06-01] MEDS ORDERED: SODIUM CHLORIDE 0.9% 500 ML IV SCH (20:00)
[2021-06-01] MEDS ORDERED: SODIUM CHLORIDE 0.9% 1000ML 1,000 ML IV SCH (20:00)
--- NOTE | 2021-06-01 20:13 | CT Scan Report ---
CT angio head wo/w CLINICAL HISTORY: Ams fall, vomiting COMPARISON STUDY: CT brain without contrast from 05/26/2021 CT DOSE: TECHNIQUE: CT Angio of the brain was performed.followed by image post processing with coronal, and s agittal MIP reformats. Contrast Volume: Optiray 320, 120 ml FINDINGS: Vascular findings: There is normal enhancement within the internal carotid arteries bilaterally. The re is normal enhancement noted within the anterior, middle and posterior cerebral arteries. Nonvascular findings: The ventricles are mildly dilated bilaterally. There is mild cerebral cortical atrophy and decreased attenuation in the periventricular white matter representing remote small vesse l disease. There is no evidence for an acute infarct or cerebral edema. IMPRESSION: 1. Negative CT angiogram of the brain with contrast. 2. Mild cerebral cortical atrophy and remote small vessel disease. ACT 112: Negative or not required by law. Electronically signed by: Jhonny Perez M.D. 06/01/2021 8:11 PM
[2021-06-01 20:16] LABS: Appearance Urine Clear (Clear); Bilirubin Urine Negative (Negative); Blood Urine Negative (Negative); Color Urine Yellow; Glucose Urine UA 2+ (Negative); Ketones Urine Negative (Negative); Leukocyte Esterase Urine Negative (Negative); Nitrite Urine Negative (Negative); Protein Urine Negative (Negative); Specific Gravity Urine 1.026 (1.000-1.030); Urobilinogen Urine Negative (Negative); pH Urine 7.5 (4.5-7.5)
[2021-06-01 20:16] LABS: Basophils # (auto) 0.02 K/uL (0-0.2); Basophils % (auto) 0.4 %; Eosinophils % (auto) 3.6 %; Hematocrit (blood only) 31.9 % (37-47); Hemoglobin 10.5 g/dL (12.0-16.0); Immature Granulocytes # (auto) 0.02 K/uL (0.00-0.02); Immature Granulocytes % (auto) 0.4 %; Lymphocytes # (auto) 1.18 K/uL (1.2-3.4); Lymphocytes % (auto) 21.5 %; Mean Corpuscular Hemoglobin 29.6 pg (25-34); Mean Corpuscular Hgb Conc 32.9 g/dL (32-36); Mean Corpuscular Volume 89.9 fL (80-100); Mean Platelet Volume 10.2 fL (7.4-10.4); Monocytes # (auto) 0.41 K/uL (0.11-0.59); Monocytes % (auto) 7.5 %; Neutrophils # (auto) 3.66 K/uL (1.4-6.5); Neutrophils % (auto) 66.6 %; Platelet Count 288 K/uL (130-400); RDW Coefficient of Variation 14.7 % (11.5-14.5); RDW Standard Deviation 48.7 fL (36.4-46.3); Red Blood Count 3.55 M/uL (4.2-5.4); White Blood Count 5.49 K/uL (4.8-10.8)
--- NOTE | 2021-06-01 20:18 | CT Scan Report ---
CT angio neck with con CLINICAL HISTORY: Ams . Status post fall with vomiting COMPARISON STUDY: No previous studies for comparison. CT DOSE: 1407.22 mGy.cm TECHNIQUE: CT Angio of the neck was performed.followed by image post processing with coronal, and sa gittal MIP reformats.. Stenosis assessment by NASCET criteria. Contrast Volume: Optiray 320, 120 ml FINDINGS: Vascular findings: Right common carotid artery: Patent without significant stenosis. Mild atherosclerotic plaque is pres ent at the carotid bulb with less than 20% stenosis. Right internal carotid artery: Patent without significant stenosis. Right vertebral artery: Patent without significant stenosis. Mild atherosclerotic plaque is present a t the origin of the right vertebral artery with less than 20% stenosis. Left common carotid artery: Patent without significant stenosis. Mild atherosclerotic plaque is seen at the carotid bulb with less than 20% stenosis. Left internal carotid artery: Patent without significant stenosis.Mild atherosclerotic plaque is seen involving the distal left internal carotid artery is less than 20% stenosis. Left vertebral artery: Patent without significant stenosis. Nonvascular findings: The parotid and submandibular salivary glands appear normal. There is no enlarged cervical adenopathy noted. The airway appears patent. The thyroid gland appears within normal limits. The lung apices ap pear within normal limits. Impression: Mild atherosclerotic plaque is present bilaterally with less than 20% stenosis present at the sites described. Otherwise, negative CT angiogram of the neck with contrast. ACT 112: Negative or not required by law. Electronically signed by: Jhonny Perez M.D. 06/01/2021 8:17 PM
[2021-06-01 20:33] LABS: Albumin Level 3.4 gm/dl (3.4-5.0); BUN Creatinine Ratio 15.8 (10-20); Creatinine Clr Calc Pharmacy 24.6 ml/min; Est GFR (African American) 42.2 ml/min; Est GFR (Non-African American) 36.4 ml/min; Magnesium 1.6 mg/dl (1.8-2.4); Potassium 3.7 mmol/L (3.5-5.1)
[2021-06-01 20:44] LABS: Bilirubin,Total 0.6 mg/dl (0.2-1); Globulin 3.4 gm/dl (2.5-4.0); Thyroid Stimulating Hormone 1.86 uIu/ml (0.300-4.500); Total Protein 6.8 gm/dl (6.4-8.2)
[2021-06-01 20:54] LABS: Influenza A virus by PCR Negative (Neg); Influenza B virus by PCR Negative (Neg); RSV by PCR Negative (Neg); SARS CoV2 RNA(COVID-19) InHosp NEGATIVE (Negative)
--- NOTE | 2021-06-01 21:15 | XRay Report ---
XR chest 1V portable CLINICAL HISTORY: weakness. Evaluate cardiopulmonary status COMPARISON STUDY: 05/26/2021 TECHNIQUE: 1 view of the chest FINDINGS: Single frontal view of the chest demonstrates the heart to be mildly enlarged. The lungs are clear of alveolar opacities. There is no evidence for pleural effusion. There is no evidence for vascular con gestion. There is no acute osseous pathology. IMPRESSION: No acute cardiopulmonary disease. ACT 112: Negative or not required by law. Electronically signed by: Jhonny Perez M.D. 06/01/2021 9:13 PM
[2021-06-01] MEDS ORDERED: ONDANSETRON INJ 2 MG/ML 2 ML VIAL IV STA (21:27)
[2021-06-01] MEDS ORDERED: ONDANSETRON INJ 2 MG/ML 2 ML VIAL ONE (21:28)
[2021-06-01] MEDS: MAGNESIUM SULFATE / D5W 1 GM/100 ML BAG IV SCH ×2 (21:48→23:25)
--- NOTE | 2021-06-01 22:33 | CT Scan Report ---
CT abd pelvis wo con CLINICAL HISTORY: Vomiting . Abdominal pain and nausea COMPARISON STUDY: No previous studies for comparison. CT DOSE: 247.54 mGy.cm TECHNIQUE: Standard CT of the Abdomen and Pelvis was performed without IV contrast. However, there is intravenous contrast present within the renal collecting systems and bladder from earlier CTA of the head and neck. The patient did not receive oral contrast. A dose lowering technique was utilized ad breanna to the principles of ALARA. FINDINGS: Lung base: The lung bases are clear. There is very mild pericardial thickening/effusion Abdominal cavity: There is no evidence for abdominal mass, adenopathy or ascites. Liver: The liver is homogeneous in attenuation on these limited noncontrast images.. Spleen: The spleen is homogeneous in attenuation on these limited noncontrast images. Pancreas: The pancreas is homogeneous in attenuation on these limited noncontrast images. Gall Bladder: The gallbladder is well distended with no evidence for cholelithiasis, wall thickening or pericholecystic edema.. Adrenal glands: The adrenal glands are normal in size and attenuation on these limited noncontrast im ages. Kidneys: The kidneys are homogeneous in attenuation on these limited noncontrast images. There is no evidence for gross renal mass, calculus or hydronephrosis bilaterally. Contrast is again seen within the renal collecting systems. Bowel: The bowel loops are normally placed within the abdomen and pelvis without evidence for dilatat ion or obstruction. However, the small bowel loops are fluid-filled which can be seen with ileus vers us gastroenteritis. There are scattered diverticula seen throughout the entire colon, particularly th e sigmoid colon. There is no evidence for diverticulitis. There are no inflammatory changes present. There is no evidence for free air. Appendix is not visualized. Bladder: There is gross distention of the bladder with contrast with no evidence for focal bladder wa ll thickening, calculus or diverticulum. : There is no evidence for pelvic mass or adenopathy. Vasculature: There is no evidence for focal aneurysmal dilatation of the abdominal aorta. Extensive a therosclerotic calcification is present. Osseous structures: There is no acute osseous pathology. Degenerative changes are seen within the lum bar spine and SI joints. There is a bone island present within the right iliac wing. IMPRESSION: 1. Fluid-filled loops of small bowel throughout the abdomen and pelvis without evidence for dispropor tionate dilatation or obstruction. These findings can be seen with ileus versus gastroenteritis. 2. Diverticulosis without evidence for diverticulitis. 3. Gross distention of the urinary bladder. 4. Very mild pericardial thickening/effusion. 5. Additional nonacute findings as delineated above. ACT 112: Negative or not required by law. Electronically signed by: Jhonny Perez M.D. 06/01/2021 10:32 PM
--- NOTE | 2021-06-02 00:21 | Emergency Department Note ---
Impression & Plan JOVANY (acute kidney injury), Vomiting and diarrhea, Dementia, Weakness, Accidental fall from commode or toilet ED Provider Note CHIEF COMPLAINT: Vomiting, fall HISTORY OF PRESENT ILLNESS: This 76-year-old female patient presents to the emergency department complaints of vomiting this evening. Patient was apparently in the bathroom when heard a loud crash. She was found on the floor with concerns of her head injury. The fall was unwitnessed however. Patient was recently hospitalized and diagnosed with shingles over the right side of the face. She does have a history of rather advanced dementia. Per EMS she had several episodes of "projectile vomiting" on her way in and also at CT. REVIEW OF SYSTEMS: Unable to obtain a full review of systems secondary to the patient's dementia. History is obtained per nursing/EMS report and per son at the bedside. ALLERGIES: see below MEDICATIONS: see below PMH: see below SOCIAL HISTORY: see below DDx: Gastroenteritis, food borne illness, infections, appendicitis, diverticulitis, inflammatory bowel disease, obstruction, GI bleed, biliary pathology, volvulus, CHI, fx, ICH, as well as other pathologies. PHYSICAL EXAM: Vital signs reviewed. General: Chronically ill-appearing 76 yo female, in no significant distress. HEENT: No scleral icterus, PERRLA, neck supple. Atraumatic. Cardiovascular: Regular rate and rhythm, no extra sounds. Pulmonary: Clear to auscultation bilaterally, normal work of breathing. Abdomen: Soft, nontender, nondistended, positive bowel sounds. Musculoskeletal: Atraumatic, no peripheral edema. Neurologic: Patient awake alert and oriented x 3 Skin: Warm, dry, no rash EMERGENCY DEPARTMENT COURSE/MDM: This patient was evaluated. Patient was placed on the manager audit. IV access was obtained and laboratory work was drawn. Patient was hydrated with normal saline solution and given zofran 4 mg IV. Patient's laboratory work is fairly reassuring with exception of mild JOVANY. UA is negative for infection. COVID swab is negative. CT imaging of the head with angiogram of head/neck was performed and are negative for acute abnl. Pt was d/w hospitalist this week for further evaluation and management. Patient son was made aware of the plan and agreed. MONITORING: An order for cardiac monitoring was placed and the patient is noted to be in a NSR at 72 beats per minute. RADIOLOGY: see below DISPOSITION: admit Past Med/Surg History Medical History CAD (coronary artery disease) Dementia HTN (hypertension) Social History (Updated 06/02/21 @ 00:47 by Eusebia Ho MD) Smoking Status: Unknown if ever smoked Preferred Language: [place] marital status: Current Living Situation: Family Feels Safe at Home: Yes Assistive Devices: None Allergies Allergies Allergy/AdvReac Type Severity Reaction Status Date / Time No Known Allergies Allergy Unverified 06/01/21 21:03 Home Meds Home Medications Medication Instructions Recorded Confirmed alendronate 35 mg tablet 35 mg PO WK 05/26/21 06/01/21 aspirin 81 mg tablet,delayed 81 mg PO DAILY 05/26/21 06/01/21 release atorvastatin 80 mg tablet 80 mg PO PM 05/26/21 06/01/21 brimonidine 0.2 %-timolol 0.5 % 1 drp OPR BID 05/26/21 06/01/21 eye drops (Combigan) carvedilol 6.25 mg tablet 6.25 mg PO BID 05/26/21 06/01/21 cholecalciferol (vitamin D3) 50 50 mcg PO DAILY 05/26/21 06/01/21 mcg (2,000 unit) tablet (Vitamin D3) dapagliflozin 10 mg tablet 10 mg PO QAM 05/26/21 06/01/21 donepezil 5 mg tablet 5 mg PO HS 05/26/21 06/01/21 insulin glargine 100 unit/mL (3 20 unit SUBCUT QAM 05/26/21 06/01/21 mL) subcutaneous pen (Basaglar KwikPen U-100 Insulin) linagliptin 5 mg tablet (Tradjenta) 5 mg PO QPM 05/26/21 06/01/21 losartan 25 mg tablet 25 mg PO DAILY 05/26/21 06/01/21 ticagrelor 90 mg tablet (Brilinta) 90 mg PO Q12H 05/26/21 06/01/21 metformin 500 mg tablet 500 mg PO BID 06/01/21 06/01/21 Previous Rx's Medication Instructions Recorded isosorbide mononitrate 60 mg 60 mg PO QAM #30 tab 05/27/21 tablet,extended release 24 hr Results & Data (ED) Vital Signs Vital Signs - 24 hr 06/01/21 19:54 06/01/21 20:00 06/01/21 20:30 Pulse Rate 72 71 77 Pulse Rate [Left Radial] Pulse Rate from SpO2 Sensor 72 73 Pulse Rhythm Regular Pulse Rhythm [Left Radial] Pulse Strength Normal Pulse Strength [Left Radial] Respiratory Rate 14 17 15 Respiratory Effort / Characteristics Non-Labored Spontaneous Respiratory Depth Normal Respiratory Pattern Regular Blood Pressure 164/85 H 179/77 H Blood Pressure [Right Arm] Blood Pressure Mean 111 111 Blood Pressure Mean [Right Arm] Blood Pressure Position Sitting Blood Pressure Position [Right Arm] Pulse Oximetry 98 98 94 Oxygen Delivery Method Room Air Sepsis Recent Fever Within 48 Hours No Sepsis New/Unexplained Change in Mental Status N/A Sepsis Action Taken by Nursing No Action Required 06/01/21 20:47 06/01/21 21:00 06/01/21 21:30 Pulse Rate 70 67 Pulse Rate [Left Radial] 72 Pulse Rate from SpO2 Sensor 72 Pulse Rhythm Pulse Rhythm [Left Radial] Regular Pulse Strength Pulse Strength [Left Radial] Normal Respiratory Rate 18 13 24 Respiratory Effort / Characteristics Non-Labored Spontaneous Respiratory Depth Normal Respiratory Pattern Blood Pressure 154/69 H Blood Pressure [Right Arm] 179/77 H Blood Pressure Mean 97 Blood Pressure Mean [Right Arm] 111 Blood Pressure Position Blood Pressure Position [Right Arm] Sitting Pulse Oximetry 100 99 Oxygen Delivery Method Room Air Sepsis Recent Fever Within 48 Hours Sepsis New/Unexplained Change in Mental Status Sepsis Action Taken by Nursing 06/01/21 23:17 Pulse Rate Pulse Rate [Left Radial] 82 Pulse Rate from SpO2 Sensor Pulse Rhythm Pulse Rhythm [Left Radial] Regular Pulse Strength Pulse Strength [Left Radial] Normal Respiratory Rate 16 Respiratory Effort / Characteristics Non-Labored Spontaneous Respiratory Depth Normal Respiratory Pattern Regular Blood Pressure Blood Pressure [Right Arm] 137/67 Blood Pressure Mean Blood Pressure Mean [Right Arm] 90 Blood Pressure Position Blood Pressure Position [Right Arm] Semi-fowlers Pulse Oximetry 97 Oxygen Delivery Method Room Air Sepsis Recent Fever Within 48 Hours Sepsis New/Unexplained Change in Mental Status Sepsis Action Taken by Residential Medications Current Medication List: was personally reviewed by me Laboratory Data Attestation: I reviewed the patient's lab results. Result diagrams: 06/01/21 20:00 06/01/21 20:00 Lab Results 12/26/21 12/26/21 12/26/21 Range/Units 20:00 20:00 20:00 WBC 5.49 (4.8-10.8) K/uL RBC 3.55 L (4.2-5.4) M/uL Hgb 10.5 L (12.0-16.0) g/dL Hct 31.9 L (37-47) % MCV 89.9 (80-100) fL MCH 29.6 (25-34) pg MCHC 32.9 (32-36) g/dL RDW Std Deviation 48.7 H (36.4-46.3) fL RDW Coeff of Josh 14.7 H (11.5-14.5) % Plt Count 288 (130-400) K/uL MPV 10.2 (7.4-10.4) fL Immature Gran % (Auto) 0.4 % Neut % (Auto) 66.6 % Lymph % (Auto) 21.5 % [place] % (Auto) 7.5 % Eos % (Auto) 3.6 % Baso % (Auto) 0.4 % Neut # (Auto) 3.66 (1.4-6.5) K/uL Lymph # (Auto) 1.18 L (1.2-3.4) K/uL [place] # (Auto) 0.41 (0.11-0.59) K/uL Eos # (Auto) 0.20 (0-0.5) K/uL Baso # (Auto) 0.02 (0-0.2) K/uL Immature Gran # (Auto) 0.02 (0.00-0.02) K/uL Sodium 138 (136-145) mmol/L Potassium 3.7 (3.5-5.1) mmol/L Chloride 105 (98-107) mmol/L Carbon Dioxide 24 (21-32) mmol/L Anion Gap 9.0 (3-11) BUN 22 H (7-18) mg/dl Creatinine 1.40 H (0.6-1.2) mg/dl Est Cr Clr Drug Dosing 24.6 ml/min Est GFR ( Amer) 42.2 ml/min Est GFR (Non-Af Amer) 36.4 ml/min BUN/Creatinine Ratio 15.8 (10-20) Glucose 149 H (70-99) mg/dl Lactate 1.6 (0.4-2.0) mmol/L Calcium 9.0 (8.5-10.1) mg/dl Magnesium 1.6 L (1.8-2.4) mg/dl Total Bilirubin 0.6 (0.2-1) mg/dl AST 23 (15-37) U/L ALT 30 (12-78) Alkaline Phosphatase 71 (45-117) U/L Total Protein 6.8 (6.4-8.2) gm/dl Albumin 3.4 (3.4-5.0) gm/dl Globulin 3.4 (2.5-4.0) gm/dl Albumin/Globulin Ratio 1.0 (0.9-2) TSH 1.860 (0.300-4.500) uIu/ml Urine Color Urine Appearance (Clear) Urine pH (4.5-7.5) Ur Specific [place] (1.000-1.030) Urine Protein (Negative) Urine Glucose (UA) (Negative) Urine Ketones (Negative) Urine Blood (Negative) Urine Nitrite (Negative) Urine Bilirubin (Negative) Urine Urobilinogen (Negative) Ur Leukocyte Esterase (Negative) SARS-CoV-2 (PCR) (Negative) Influenza Type A (PCR) (Neg) Influenza Type B (PCR) (Neg) RSV (RT-PCR) (Neg) 06/01/21 06/01/21 Range/Units 20:08 20:08 WBC (4.8-10.8) K/uL RBC (4.2-5.4) M/uL Hgb (12.0-16.0) g/dL Hct (37-47) % MCV (80-100) fL MCH (25-34) pg MCHC (32-36) g/dL RDW Std Deviation (36.4-46.3) fL RDW Coeff of Josh (11.5-14.5) % Plt Count (130-400) K/uL MPV (7.4-10.4) fL Immature Gran % (Auto) % Neut % (Auto) % Lymph % (Auto) % [place] % (Auto) % Eos % (Auto) % Baso % (Auto) % Neut # (Auto) (1.4-6.5) K/uL Lymph # (Auto) (1.2-3.4) K/uL [place] # (Auto) (0.11-0.59) K/uL Eos # (Auto) (0-0.5) K/uL Baso # (Auto) (0-0.2) K/uL Immature Gran # (Auto) (0.00-0.02) K/uL Sodium (136-145) mmol/L Potassium (3.5-5.1) mmol/L Chloride (98-107) mmol/L Carbon Dioxide (21-32) mmol/L Anion Gap (3-11) BUN (7-18) mg/dl Creatinine (0.6-1.2) mg/dl Est Cr Clr Drug Dosing ml/min Est GFR ( Amer) ml/min Est GFR (Non-Af Amer) ml/min BUN/Creatinine Ratio (10-20) Glucose (70-99) mg/dl Lactate (0.4-2.0) mmol/L Calcium (8.5-10.1) mg/dl Magnesium (1.8-2.4) mg/dl Total Bilirubin (0.2-1) mg/dl AST (15-37) U/L ALT (12-78) Alkaline Phosphatase (45-117) U/L Total Protein (6.4-8.2) gm/dl Albumin (3.4-5.0) gm/dl Globulin (2.5-4.0) gm/dl Albumin/Globulin Ratio (0.9-2) TSH (0.300-4.500) uIu/ml Urine Color Yellow Urine Appearance Clear (Clear) Urine pH 7.5 (4.5-7.5) Ur Specific [place] 1.026 (1.000-1.030) Urine Protein Negative (Negative) Urine Glucose (UA) 2+ H (Negative) Urine Ketones Negative (Negative) Urine Blood Negative (Negative) Urine Nitrite Negative (Negative) Urine Bilirubin Negative (Negative) Urine Urobilinogen Negative (Negative) Ur Leukocyte Esterase Negative (Negative) SARS-CoV-2 (PCR) NEGATIVE (Negative) Influenza Type A (PCR) Negative (Neg) Influenza Type B (PCR) Negative (Neg) RSV (RT-PCR) Negative (Neg) Administered Medications Sodium Chloride (Nss 1000ml) 1,000 mls @ 125 mls/hr IV .Q8H JENN Stop: 06/02/21 03:59 Last Admin: 06/01/21 21:49 Dose: 125 mls/hr Documented by: [id number] Discontinued Medications Acetaminophen (Acetaminophen 500 Mg Tab) 1,000 mg PO NOW STA Stop: 06/01/21 19:53 Last Admin: 06/01/21 20:16 Dose: 1,000 mg Documented by: [id number] Sodium Chloride (Nss) 500 mls @ 999 mls/hr IV .Q31M JENN Stop: 06/01/21 20:30 Last Infusion: 06/01/21 22:55 Dose: 500 mls/hr Documented by: [id number] Admin: 06/01/21 20:06 Dose: 999 mls/hr Documented by: [id number] Magnesium Sulfate/Dextrose (Magnesium Sulfate / D5w) 1 gm in 100 mls @ 200 mls/hr IV Q30M JENN Stop: 06/01/21 22:10 Last Admin: 06/01/21 23:25 Dose: 200 mls/hr Documented by: [id number] Infusion: 06/01/21 22:18 Dose: 200 mls/hr Documented by: [id number] Admin: 06/01/21 21:48 Dose: 200 mls/hr Documented by: [id number] Ioversol (Optiray 320 125ml) 120 ml IV ONCE ONE Stop: 06/01/21 19:38 Last Admin: 06/01/21 19:37 Dose: 120 ml Documented by: [id number] Ondansetron HCl (Ondansetron Inj 2 Mg/Ml 2 Ml Vial) 4 mg IV NOW STA Stop: 06/01/21 21:28 Last Admin: 06/01/21 21:48 Dose: 4 mg Documented by: [id number] Ondansetron HCl (Ondansetron Inj 2 Mg/Ml 2 Ml Vial) Confirm Administered Dose 4 mg .ROUTE .STK-MED ONE Stop: 06/01/21 21:29 Last Admin: 06/01/21 22:00 Dose: 4 mg Documented by: [id number] Imaging Data Radiologist's Impression: Head CTA 06/01/21 19:26 CT angio head wo/w CLINICAL HISTORY: Ams fall, vomiting COMPARISON STUDY: CT brain without contrast from 05/26/2021 CT DOSE: TECHNIQUE: CT Angio of the brain was performed.followed by image post processing with coronal, and sagittal MIP reformats. Contrast Volume: Optiray 320, 120 ml FINDINGS: Vascular findings: There is normal enhancement within the internal carotid arteries bilaterally. There is normal enhancement noted within the anterior, middle and posterior cerebral arteries. Nonvascular findings: The ventricles are mildly dilated bilaterally. There is mild cerebral cortical atrophy and decreased attenuation in the periventricular white matter representing remote small vessel disease. There is no evidence for an acute infarct or cerebral edema. IMPRESSION: 1. Negative CT angiogram of the brain with contrast. 2. Mild cerebral cortical atrophy and remote small vessel disease. ACT 112: Negative or not required by law. Electronically signed by: Jhonny Perez M.D. 06/01/2021 8:11 PM Neck CTA 06/01/21 19:26 CT angio neck with con CLINICAL HISTORY: Ams . Status post fall with vomiting COMPARISON STUDY: No previous studies for comparison. CT DOSE: 1407.22 mGy.cm TECHNIQUE: CT Angio of the neck was performed.followed by image post processing with coronal, and sagittal MIP reformats.. Stenosis assessment by NASCET criteria. Contrast Volume: Optiray 320, 120 ml FINDINGS: Vascular findings: Right common carotid artery: Patent without significant stenosis. Mild atherosclerotic plaque is present at the carotid bulb with less than 20% stenosis. Right internal carotid artery: Patent without significant stenosis. Right vertebral artery: Patent without significant stenosis. Mild atherosclerotic plaque is present at the origin of the right vertebral artery with less than 20% stenosis. Left common carotid artery: Patent without significant stenosis. Mild atherosclerotic plaque is seen at the carotid bulb with less than 20% stenosis. Left internal carotid artery: Patent without significant stenosis.Mild atherosclerotic plaque is seen involving the distal left internal carotid artery is less than 20% stenosis. Left vertebral artery: Patent without significant stenosis. Nonvascular findings: The parotid and submandibular salivary glands appear normal. There is no enlarged cervical adenopathy noted. The airway appears patent. The thyroid gland appears within normal limits. The lung apices appear within normal limits. Impression: Mild atherosclerotic plaque is present bilaterally with less than 20% stenosis present at the sites described. Otherwise, negative CT angiogram of the neck with contrast. ACT 112: Negative or not required by law. Electronically signed by: Jhonny Perez M.D. 06/01/2021 8:17 PM Chest X-Ray 06/01/21 19:52 XR chest 1V portable CLINICAL HISTORY: weakness. Evaluate cardiopulmonary status COMPARISON STUDY: 05/26/2021 TECHNIQUE: 1 view of the chest FINDINGS: Single frontal view of the chest demonstrates the heart to be mildly enlarged. The lungs are clear of alveolar opacities. There is no evidence for pleural effusion. There is no evidence for vascular congestion. There is no acute osseous pathology. IMPRESSION: No acute cardiopulmonary disease. ACT 112: Negative or not required by law. Electronically signed by: Jhonny Perez M.D. 06/01/2021 9:13 PM Abdomen/Pelvis CT 06/01/21 21:27 CT abd pelvis wo con CLINICAL HISTORY: Vomiting . Abdominal pain and nausea COMPARISON STUDY: No previous studies for comparison. CT DOSE: 247.54 mGy.cm TECHNIQUE: Standard CT of the Abdomen and Pelvis was performed without IV contrast. However, there is intravenous contrast present within the renal collecting systems and bladder from earlier CTA of the head and neck. The patient did not receive oral contrast. A dose lowering technique was utilized adhering to the principles of ALARA. FINDINGS: Lung base: The lung bases are clear. There is very mild pericardial thickening/effusion Abdominal cavity: There is no evidence for abdominal mass, adenopathy or ascites. Liver: The liver is homogeneous in attenuation on these limited noncontrast i mages.. Spleen: The spleen is homogeneous in attenuation on these limited noncontrast images. Pancreas: The pancreas is homogeneous in attenuation on these limited noncontrast images. Gall Bladder: The gallbladder is well distended with no evidence for cholelithiasis, wall thickening or pericholecystic edema.. Adrenal glands: The adrenal glands are normal in size and attenuation on these limited noncontrast images. Kidneys: The kidneys are homogeneous in attenuation on these limited noncontrast images. There is no evidence for gross renal mass, calculus or hydronephrosis bilaterally. Contrast is again seen within the renal collecting systems. Bowel: The bowel loops are normally placed within the abdomen and pelvis without evidence for dilatation or obstruction. However, the small bowel loops are fluid-filled which can be seen with ileus versus gastroenteritis. There are scattered diverticula seen throughout the entire colon, particularly the sigmoid colon. There is no evidence for diverticulitis. There are no inflammatory ryan es present. There is no evidence for free air. Appendix is not visualized. Bladder: There is gross distention of the bladder with contrast with no evidence for focal bladder wall thickening, calculus or diverticulum. : There is no evidence for pelvic mass or adenopathy. Vasculature: There is no evidence for focal aneurysmal dilatation of the abdominal aorta. Extensive atherosclerotic calcification is present. Osseous structures: There is no acute osseous pathology. Degenerative changes are seen within the lumbar spine and SI joints. There is a bone island present within the right iliac wing. IMPRESSION: 1. Fluid-filled loops of small bowel throughout the abdomen and pelvis without evidence for disproportionate dilatation or obstruction. These findings can be seen with ileus versus gastroenteritis. 2. Diverticulosis without evidence for diverticulitis. 3. Gross distention of the urinary bladder. 4. Very mild pericardial thickening/effusion. 5. Additional nonacute findings as delineated above. ACT 112: Negative or not required by law. Electronically signed by: Jhonny Perez M.D. 06/01/2021 10:32 PM Blood Pressure Blood Pressure Findings: Elevated blood pressure Blood Pressure Disposition: further management by hospitalist Discharge Plan Visit Data Chief Complaint: Syncope Stated Complaint: Fall, Confusion ED Provider: Eusebia Ho Discharge Problem: JOVANY (acute kidney injury), Vomiting and diarrhea, Dementia, Weakness, Accidental fall from commode or toilet Forms Stand Alone Forms: [facility] Prescriptions Prescriptions: No Action metformin 500 mg Tablet 500 mg PO BID RF: 0 atorvastatin 80 mg Tablet 80 mg PO PM RF: 0 carvedilol 6.25 mg Tablet 6.25 mg PO BID RF: 0 donepezil 5 mg Tablet 5 mg PO HS RF: 0 aspirin 81 mg Tablet,Delayed Release (Dr/Ec) 81 mg PO DAILY RF: 0 alendronate 35 mg Tablet 35 mg PO WK RF: 0 losartan 25 mg Tablet 25 mg PO DAILY RF: 0 Basaglar KwikPen U-100 Insulin 100 unit/mL (3 mL) Insulin Pen 20 unit SUBCUT QAM RF: 0 Combigan 0.2-0.5 % Drops 1 drp OPR BID RF: 0 cholecalciferol (vitamin D3) [Vitamin D3] 50 mcg (2,000 unit) Tablet 50 mcg PO DAILY RF: 0 Tradjenta 5 mg Tablet 5 mg PO QPM RF: 0 Brilinta 90 mg Tablet 90 mg PO Q12H RF: 0 dapagliflozin 10 mg Tablet 10 mg PO QAM RF: 0 isosorbide mononitrate 60 mg Tablet Extended Release 24 Hr 60 mg PO QAM Qty: 30 RF: 0 Referrals Referrals: Marika Neff MD [Primary Care Provider] - Discharge Problem: Dementia Qualifiers: Dementia type: Alzheimer's Alzheimer's disease onset: unspecified onset Dementia behavioral disturbance: without behavioral disturbance Qualified Code(s): G30.9 - Alzheimer's disease, unspecified Accidental fall from commode or toilet Qualifiers: Encounter type: initial encounter Qualified Code(s): W18.11XA - Fall from or off toilet without subsequent striking against object, initial encounter
[2021-06-02] MEDS ORDERED: MAGNESIUM SULFATE / D5W 1 GM/100 ML BAG IV STA (01:29)
[2021-06-02] MEDS ORDERED: MAGNESIUM SULFATE 1GM / D5W BAG IV ONE (02:12)
[2021-06-02] MEDS ORDERED: ACETAMINOPHEN 325 MG TAB PO PRN (02:26)
[2021-06-02] MEDS ORDERED: PROMETHAZINE HCL 12.5 MG in SODIUM CHLORIDE 0.9% 50 ML IV PRN (02:26)
[2021-06-02] MEDS ORDERED: NITROGLYCERIN SL 0.4 MG/TAB TAB SL PRN (02:26)
[2021-06-02] MEDS ORDERED: CARBOHYDRATES FOR HYPOGLYCEMIA PO PRN (04:30)
[2021-06-02] MEDS ORDERED: GLUCOSE 40% GEL 15 GM TUBE PO PRN (04:30)
[2021-06-02] MEDS ORDERED: GLUCOSE 10 TABS/TUBE PO PRN (04:30)
[2021-06-02] MEDS ORDERED: GLUCAGON FOR INJ 1 MG VIAL IM PRN (04:30)
[2021-06-02] MEDS ORDERED: DEXTROSE 50% 50 ML SYRINGE IV PRN (04:30)
[2021-06-02] MEDS: COMBIGAN~ORDER AWAITING ACTION SCH ×3 (04:32→09:07)
[2021-06-02] MEDS: SODIUM CHLORIDE 0.9% 1000ML 1,000 ML IV SCH ×2 (05:10→23:32)
--- NOTE | 2021-06-02 05:12 | History and Physical Report ---
DATE OF ADMISSION: 06/02/2021. CHIEF COMPLAINT: Syncope. HISTORY OF PRESENT ILLNESS: This is a 76-year-old female with past medical history significant for CAD, status post multiple coronary interventions, stent for rotational arthrectomy, chronic systolic CHF, ischemic cardiomyopathy, EF of around 30%, hypertension, hyperlipidemia, chronic kidney disease stage III, type 2 diabetes, progressive dementia, who recently had cardiac catheterization in [place] in March 2021 which showed multivessel disease involving small branch arteries, stents were patent, and medical management recommended. She was started on Brilinta at that bedtime. Lasix was reduced to 20 mg. She was recently admitted to the hospital for possible CAD and also right eye shingles. Her Imdur dose was increased to 60 mg. At that time, troponin went up to 0.3. The patient was discharged home to follow up with Cardiology in the office. She was discharged on 05/27/2021. Echo done in that admission showed EF of 30% to 35%. The patient currently was brought in today because of syncope.She lives with her . She ambulates without any support, but walks slowly. She says she was going to bathroom, suddenly fell down. Her heard the noise and went to see her. She was on the floor and closed her eyes as per the son. As per the patient, she does not know how she fell. She does not think she passed for a long time and the EMS was called. Currently, alert and awake. The patient can tell her name, knows that she is in the hospital, can tell her date of , does not know current date. She is feeling fine now. Denies any chest pain, no shortness of breath, no cough, no fevers, no abdominal pain. Normal bowel and bladder movements. As per son, there was no diarrhea, but she vomited two times with the episodes. In the ER, imaging studies were done with a CT of abdomen and pelvis, showed possible gastroenteritis versus ileus. Other remaining studies are okay. ALLERGIES: No known drug allergies. PAST MEDICAL HISTORY: As mentioned above. PAST SURGICAL HISTORY: No past surgical history on file. SOCIAL HISTORY: , lives with her . Former smoker. MEDICATIONS: The patient is on alendronate 35 mg p.o. weekly, aspirin 81 mg p.o. daily, atorvastatin 80 mg p.o. p.m., Basaglar insulin 20 units subcutaneous a.m. Brilinta 90 mg p.o. b.i.d., Coreg 6.25 mg p.o. b.i.d., vitamin D 50 mcg p.o. daily, Combigan one drop ophthalmic b.i.d., dapagliflozin 10 mg p.o. a.m., Donezepil 5 mg p.o. at bedtime, isosorbide mononitrate 60 mg p.o. a.m., losartan 25 mg p.o. daily, metformin 500 mg p.o. b.i.d., Tradjenta 5 mg p.o. p.m. FAMILY HISTORY: No family history on file. REVIEW OF SYSTEMS: As per HPI. Could not get complete review of systems as the patient has dementia. PHYSICAL EXAMINATION: VITAL SIGNS: Temperature afebrile, pulse 82, respiratory rate 16, blood pressure 137/67, oxygen 97% on room air. HEENT: Pupils equal, round and reactive to light. Oral mucosa moist. NECK: No JVD, no neck masses. CARDIOVASCULAR: S1 and S2 heard. Regular rate and rhythm. No murmur, no gallop. RESPIRATORY SYSTEM: Normal AP diameter. No accessory muscle use. No wheezing, no crackles. ABDOMEN: Soft, bowel sounds present, nontender, no distention. CENTRAL NERVOUS SYSTEM: Alert and oriented to name and place. Obeys simple commands. Moves extremities. EXTREMITIES: No edema, no erythema. LABORATORY DATA: WBC 5.4, hemoglobin 10.5, hematocrit 31.9, platelets 288. Sodium 138, potassium 3.7, chloride 105, bicarbonate 24, BUN 22, creatinine 1.4, serum glucose 149. Lactate 1.6, calcium 9, magnesium 1.6, total bilirubin 0.6, AST 23, ALT 30, alkaline phosphatase 71. TSH 1.8. Urinalysis, +2 glucose. SARS-CoV-2 PCR negative. Influenza A and B PCR negative. RSV PCR negative. IMAGING DATA: CT of the abdomen and pelvis without contrast shows fluid-filled loops of small bowel throughout the abdomen and pelvis without evidence of dilatation or obstruction, this finding can be seen with the ileus versus gastroenteritis; diverticulosis without evidence for diverticulitis; gross distention of the urinary bladder; very mild pericardial thickening and effusion. Chest x-ray, no acute findings. CTA of the head and neck, mild atherosclerotic plaque is present on the left common internal carotid artery, otherwise unremarkable study. CTA of the head negative study. EKG: Sinus rhythm with frequent PVCs with ventricular escape complexes at the rate of 72, left axis deviation, left bundle-branch block, prolonged QTc. ASSESSMENT AND PLAN: This 76-year-old female presents with a syncopal episode. 1. Syncope: Seems the patient also had two vomiting episodes .Gastroenteritis in the CAT scan versus ileus. Will check orthostatics. Gentle fluids. Monitor in the tele. If any concern, will consult cardiology.Follow KUB. On full liquid diet.PT/OT when stable. 2. History of coronary artery disease. Received multiple coronary interventions and stents. Continue her home aspirin, Brilinta, Coreg, Imdur which was increased the last admission, and losartan. Recently had echo last admission. 3. History of hypertension: Continue her home medications as above, will monitor. 4. History of hyperlipidemia: Continue statin. 5. Dementia: Progressive on Donezepil. Monitor for any delirium. 6. Diabetes: Holding home medications po meds. Continue her home long-acting insulin and insulin sliding scale. Follow the blood sugars. 7. Chronic kidney disease stage III: Baseline creatinine around 1.4-1.5. Now creatinine is 1.4. Follow the labs. 8. Hypomagnesemia: Will replace. 9. Anemia: Hemoglobin 10.5, needs followup. 10. Chronic systolic congestive heart failure: On losartan, Imdur. Not on diuretics. Getting gentle fluids, monitor for volume overload. 11. Deep venous thrombosis prophylaxis: Heparin subcutaneous. DISPOSITION: Closely monitor in the med tele. PT/OT prior to discharge. Social service to help with discharge planning. Level 1 FULL CODE. Son does not know what her code status is, but last admission she was FULL CODE. Job ID: [id number] [facility]
[2021-06-02 05:17] LABS: Basophils # (auto) 0.01 K/uL (0-0.2); Basophils % (auto) 0.2 %; Hematocrit (blood only) 31.2 % (37-47); Hemoglobin 10.2 g/dL (12.0-16.0); Immature Granulocytes # (auto) 0.01 K/uL (0.00-0.02); Immature Granulocytes % (auto) 0.2 %; Lymphocytes # (auto) 0.62 K/uL (1.2-3.4); Lymphocytes % (auto) 9.3 %; Mean Corpuscular Hemoglobin 29.2 pg (25-34); Mean Corpuscular Hgb Conc 32.7 g/dL (32-36); Mean Corpuscular Volume 89.4 fL (80-100); Mean Platelet Volume 10.3 fL (7.4-10.4); Monocytes # (auto) 0.27 K/uL (0.11-0.59); Monocytes % (auto) 4.1 %; Neutrophils # (auto) 5.73 K/uL (1.4-6.5); Neutrophils % (auto) 86.2 %; Platelet Count 312 K/uL (130-400); RDW Coefficient of Variation 14.8 % (11.5-14.5); RDW Standard Deviation 48.2 fL (36.4-46.3); Red Blood Count 3.49 M/uL (4.2-5.4); White Blood Count 6.64 K/uL (4.8-10.8)
[2021-06-02 05:51] LABS: BUN Creatinine Ratio 17.6 (10-20); Calcium 8.5 mg/dl (8.5-10.1); Est GFR (African American) 55.9 ml/min; Est GFR (Non-African American) 48.2 ml/min; Magnesium 3.7 mg/dl (1.8-2.4); Potassium 3.3 mmol/L (3.5-5.1)
[2021-06-02] MEDS ORDERED: POTASSIUM CHLORIDE CRTAB 20 MEQ TABCR PO STA (07:01)
--- NOTE | 2021-06-02 07:48 | Electrocardiogram Report ---
Test Reason : Blood Pressure : / mmHG Vent. Rate : 072 BPM Atrial Rate : 072 BPM P-R Int : 190 ms QRS Dur : 152 ms QT Int : 500 ms P-R-T Axes : 028 -71 109 degrees QTc Int : 547 ms Sinus rhythm with frequent Premature ventricular complexes Possible Left atrial enlargement Left axis deviation Left bundle branch block Abnormal ECG When compared with ECG of 27-MAY-2021 10:37, Premature ventricular complexes are now Present Sinus rhythm is now with ventricular escape complexes QT has lengthened Confirmed by Robin Hoover ([id number]) on 06/02/2021 7:48:42 AM Referred By: REFERRED SELF Confirmed By:Reynold Hoover
--- NOTE | 2021-06-02 07:59 | XRay Report ---
KUB CLINICAL HISTORY: ileus COMPARISON STUDY: CT of the abdomen and pelvis June 01, 2021. FINDINGS: Contrast within the bladder is from recent contrast-enhanced CT. There is also suspected co ntrast within the collecting systems. Bowel gas pattern is normal. There is no evidence for a bowel o bstruction. Although sensitivity is diminished on this supine exam, there is no evidence for free air . IMPRESSION: No evidence for a bowel obstruction. Unremarkable bowel gas pattern. ACT 112: Negative or not required by law. Electronically signed by: Hector Han M.D. 06/02/2021 7:58 AM
[2021-06-02] MEDS: ASPIRIN 81 MG ECTAB PO SCH (08:01)
[2021-06-02] MEDS: carvediloL 6.25 MG TAB PO SCH ×2 (08:10→20:45)
[2021-06-02] MEDS: CHOLECALCIFEROL 1,000 UNITS 25 MCG TAB PO SCH (08:12)
[2021-06-02] MEDS: HEPARIN SOD 5,000 UNIT/0.5 ML VIAL SQ SCH ×2 (08:14→20:45)
[2021-06-02] MEDS: LOSARTAN POTASSIUM 25 MG TAB PO SCH (08:16)
[2021-06-02] MEDS: ISOSORBIDE MONO EXTENDED REL 60 MG TABCR PO SCH (08:16)
[2021-06-02] MEDS: TICAGRELOR 90 MG TAB PO SCH ×2 (08:17→20:45)
[2021-06-02] MEDS: INSULIN GLARGINE SOLOSTAR 100 UNITS/ML 3 ML PEN SQ SCH (08:19)
[2021-06-02 08:25] LABS: Estimated Average Glucose 154 mg/dl
[2021-06-02] MEDS: INSULIN ASPART PER UNIT SC SCH ×4 (09:29→20:46)
--- NOTE | 2021-06-02 14:11 | Communication Note ---
Date of Service: June 02, 2021 Patient seen and examined Agree with plans as detailed in H/P by Dr Belcher this morning
[2021-06-02] MEDS: BRIMONIDINE TARTRATE 0.2% 5ML OPR SCH (20:45)
[2021-06-02] MEDS: TIMOLOL MALEATE 0.5% OP SOLN 5 ML BTL OPR SCH (20:45)
[2021-06-02] MEDS: DONEPEZIL HCL 5 MG TAB PO SCH (20:46)
[2021-06-02] MEDS: ATORVASTATIN 40 MG TAB PO SCH (20:46)
[2021-06-03] MEDS ORDERED: VANCOMYCIN CONSULT ACTIVE PRN (05:22)
[2021-06-03] MEDS ORDERED: VANCOMYCIN HCL 1,250 MG in SODIUM CHLORIDE 0.9% 250 ML IV ONE (05:45)
[2021-06-03] MEDS: carvediloL 6.25 MG TAB PO SCH ×2 (08:44→20:45)
[2021-06-03] MEDS: TICAGRELOR 90 MG TAB PO SCH ×2 (08:44→20:46)
[2021-06-03] MEDS: LOSARTAN POTASSIUM 25 MG TAB PO SCH (08:44)
[2021-06-03] MEDS: CHOLECALCIFEROL 1,000 UNITS 25 MCG TAB PO SCH (08:44)
[2021-06-03] MEDS: ASPIRIN 81 MG ECTAB PO SCH (08:44)
[2021-06-03] MEDS: ISOSORBIDE MONO EXTENDED REL 60 MG TABCR PO SCH (08:44)
[2021-06-03] MEDS: HEPARIN SOD 5,000 UNIT/0.5 ML VIAL SQ SCH ×2 (08:45→20:45)
[2021-06-03] MEDS: TIMOLOL MALEATE 0.5% OP SOLN 5 ML BTL OPR SCH ×2 (08:45→20:46)
[2021-06-03] MEDS: BRIMONIDINE TARTRATE 0.2% 5ML OPR SCH ×2 (08:45→20:44)
[2021-06-03 08:47] LABS: Creatinine Clr Calc Pharmacy 28.9 ml/min; Est GFR (African American) 51.4 ml/min; Est GFR (Non-African American) 44.3 ml/min
[2021-06-03] MEDS: INSULIN ASPART PER UNIT SC SCH ×4 (09:27→20:50)
[2021-06-03] MEDS: INSULIN GLARGINE SOLOSTAR 100 UNITS/ML 3 ML PEN SQ SCH (10:02)
[2021-06-03 10:05] LABS: Hematocrit (blood only) 27.7 % (37-47); Hemoglobin 9.2 g/dL (12.0-16.0); Mean Corpuscular Hemoglobin 29.1 pg (25-34); Mean Corpuscular Volume 87.7 fL (80-100); Mean Platelet Volume 9.9 fL (7.4-10.4); Platelet Count 280 K/uL (130-400); RDW Coefficient of Variation 14.8 % (11.5-14.5); RDW Standard Deviation 47.3 fL (36.4-46.3); Red Blood Count 3.16 M/uL (4.2-5.4); White Blood Count 4.61 K/uL (4.8-10.8)
[2021-06-03 10:13] LABS: Mean Corpuscular Hgb Conc 33.2 g/dL (32-36)
--- NOTE | 2021-06-03 10:35 | Hospitalist Progress Note ---
Date of Service June 03, 2021 Assessment & Plan (1) Syncope: (2) HTN (hypertension): (3) Ischemic cardiomyopathy: (4) CKD stage 3 secondary to diabetes: (5) CAD (coronary artery disease): Plan: Fall/syncopal episode at home. Orthostatic vitals were positive for orthostatic hypotension yesterday. Currently resolved today. Stop IV fluids Recent echo from last week reviewed. One of the blood cultures drawn on admission was positive for GPC in clusters this is likely contaminant based on current clinical status and available labs. However, will keep patient for another day repeat blood cultures Get PT/OT evaluation Hep sq for DVT ppx Called son and updated him Admission and Anticipated Discharge Date Admission Date: June 02, 2021 Subjective Patient seen and examined. Reports feeling better today. Denies any fevers, chills, nausea, vomiting, abdominal pain, diarrhea Denies any headache, dizziness, Denies any chest pain, cough, shortness of breath, palpitations Denies any dysuria, frequency, urgency Physical Exam Constitutional: + well hydrated; no acute distress Elderly woman Eyes: PERRL, conjunctivae normal, anicteric sclerae ENMT: external ear and nose normal, oropharynx normal Respiratory: normal respiratory effort, lungs clear to auscultation Cardiovascular: RRR. S1-S2 Gastrointestinal (Abdomen): normal bowel sounds, soft, nontender, no hepatosplenomegaly Musculoskeletal: No pedal edema Neurologic: Alert and oriented to person and place only. Follows command. No focal deficits Genitourinary: No CVA tenderness Results & Data Results & Data ([facility]) Vital Signs (Past 12 Hours) Vital Signs Temp Pulse Pulse Resp BP BP Pulse Ox 06/03/21 07:46 36.6 C 63 16 165/75 H 92 06/03/21 03:35 36.9 C 57 L 20 162/76 H 96 06/03/21 00:00 72 06/02/21 23:20 36.7 C 56 L 20 117/65 97 Laboratory Results Abnormal lab results 06/02/21 06/03/21 06/03/21 Range/Units 16:40 09:51 11:31 WBC 4.61 L (4.8-10.8) K/uL RBC 3.16 L (4.2-5.4) M/uL Hgb 9.2 L (12.0-16.0) g/dL Hct 27.7 L (37-47) % RDW Std Deviation 47.3 H (36.4-46.3) fL RDW Coeff of Josh 14.8 H (11.5-14.5) % POC Glucose 134 H 115 H (70-99) mg/dl
--- NOTE | 2021-06-03 17:49 | Electrocardiogram Report ---
Test Reason : Blood Pressure : / mmHG Vent. Rate : 055 BPM Atrial Rate : 055 BPM P-R Int : 172 ms QRS Dur : 144 ms QT Int : 480 ms P-R-T Axes : 025 -66 115 degrees QTc Int : 459 ms Sinus bradycardia Left axis deviation Left bundle branch block Abnormal ECG When compared with ECG of 01-JUN-2021 19:45, Premature ventricular complexes are no longer Present QT has shortened Confirmed by Robin Hoover ([id number]) on 06/03/2021 5:49:32 PM Referred By: REFERRED SELF Confirmed By:Reynold Hoover
[2021-06-03] MEDS: ATORVASTATIN 40 MG TAB PO SCH (20:44)
[2021-06-03] MEDS: DONEPEZIL HCL 5 MG TAB PO SCH (20:45)
[2021-06-03] MEDS ORDERED: MELATONIN 3 MG TAB PO STA (23:59)
[2021-06-04 07:08] LABS: Hematocrit (blood only) 31.4 % (37-47); Hemoglobin 10.6 g/dL (12.0-16.0); Mean Corpuscular Hemoglobin 29.4 pg (25-34); Mean Corpuscular Hgb Conc 33.8 g/dL (32-36); Mean Platelet Volume 9.9 fL (7.4-10.4); Platelet Count 323 K/uL (130-400); RDW Coefficient of Variation 14.7 % (11.5-14.5); Red Blood Count 3.61 M/uL (4.2-5.4); White Blood Count 5.32 K/uL (4.8-10.8)
[2021-06-04 07:34] LABS: BUN Creatinine Ratio 11.3 (10-20); Est GFR (African American) 45.3 ml/min; Est GFR (Non-African American) 39.1 ml/min; Potassium 3.6 mmol/L (3.5-5.1)
[2021-06-04] MEDS ORDERED: POTASSIUM CHLORIDE CRTAB 20 MEQ TABCR PO STA (07:39)
[2021-06-04] MEDS: INSULIN ASPART PER UNIT SC SCH ×2 (08:38→12:32)
[2021-06-04] MEDS: BRIMONIDINE TARTRATE 0.2% 5ML OPR SCH (08:39)
[2021-06-04] MEDS: ASPIRIN 81 MG ECTAB PO SCH (08:39)
[2021-06-04] MEDS: TIMOLOL MALEATE 0.5% OP SOLN 5 ML BTL OPR SCH (08:39)
[2021-06-04] MEDS: CHOLECALCIFEROL 1,000 UNITS 25 MCG TAB PO SCH (08:40)
[2021-06-04] MEDS: INSULIN GLARGINE SOLOSTAR 100 UNITS/ML 3 ML PEN SQ SCH (08:40)
[2021-06-04] MEDS: TICAGRELOR 90 MG TAB PO SCH (08:40)
[2021-06-04] MEDS: LOSARTAN POTASSIUM 25 MG TAB PO SCH (08:40)
[2021-06-04] MEDS: carvediloL 6.25 MG TAB PO SCH (08:40)
[2021-06-04] MEDS: ISOSORBIDE MONO EXTENDED REL 60 MG TABCR PO SCH (08:40)
[2021-06-04] MEDS: HEPARIN SOD 5,000 UNIT/0.5 ML VIAL SQ SCH (08:41)
--- NOTE | 2021-06-04 16:42 | Electrocardiogram Report ---
Test Reason : Blood Pressure : / mmHG Vent. Rate : 075 BPM Atrial Rate : 075 BPM P-R Int : 162 ms QRS Dur : 126 ms QT Int : 444 ms P-R-T Axes : 027 -75 108 degrees QTc Int : 495 ms Normal sinus rhythm Possible Left atrial enlargement Left axis deviation Non-specific intra-ventricular conduction block Abnormal ECG When compared with ECG of 03-JUN-2021 05:58, Non-specific intra-ventricular conduction block has replaced Left bundle branch block Confirmed by Robin Hoover ([id number]) on 06/04/2021 4:42:19 PM Referred By: REFERRED SELF Confirmed By:Reynold Hoover
--- NOTE | 2021-06-04 20:29 | Discharge Summary ---
Date of Service June 04, 2021 Admission HPI Per Admitting Provider DATE OF ADMISSION: 06/02/2021. CHIEF COMPLAINT: Syncope. HISTORY OF PRESENT ILLNESS: This is a 76-year-old female with past medical history significant for CAD, status post multiple coronary interventions, stent for rotational arthrectomy, chronic systolic CHF, ischemic cardiomyopathy, EF of around 30%, hypertension, hyperlipidemia, chronic kidney disease stage III, type 2 diabetes, progressive dementia, who recently had cardiac catheterization in [place] in March 2021 which showed multivessel disease involving small branch arteries, stents were patent, and medical management recommended. She was start ed on Brilinta at that bedtime. Lasix was reduced to 20 mg. She was recently admitted to the hospital for possible CAD and also right eye shingles. Her Imdur dose was increased to 60 mg. At that time, troponin went up to 0.3. The patient was discharged home to follow up with Cardiology in the office. She was discharged on 05/27/2021. Echo done in that admission showed EF of 30% to 35%. The patient currently was brought in today because of syncope.She lives with her . She ambulates without any support, but walks slowly. She says she was going to bathroom, suddenly fell down. Her heard the noise and went to see her. She was on the floor and closed her eyes as per the son. As per the patient, she does not know how she fell. She does not think she passed for a long time and the EMS was called. Currently, alert and awake. The patient can tell her name, knows that she is in the hospital, can tell her date of , does not know current date. She is feeling fine now. Denies any chest pain, no shortness of breath, no cough, no fevers, no abdominal pain. Normal bowel and bladder movements. As per son, there was no diarrhea, but she vomited two times with the episodes. In the ER, imaging studies were done with a CT of abdomen and pelvis, showed possible gastroenteritis versus ileus. Other remaining studies are okay. ALLERGIES: No known drug allergies. PAST MEDICAL HISTORY: As mentioned above. PAST SURGICAL HISTORY: No past surgical history on file. SOCIAL HISTORY: , lives with her . Former smoker. MEDICATIONS: The patient is on alendronate 35 mg p.o. weekly, aspirin 81 mg p.o. daily, atorvastatin 80 mg p.o. p.m., Basaglar insulin 20 units subcutaneous a.m. Brilinta 90 mg p.o. b.i.d., Coreg 6.25 mg p.o. b.i.d., vitamin D 50 mcg p.o. daily, Combigan one drop ophthalmic b.i.d., dapagliflozin 10 mg p.o. a.m., Donezepil 5 mg p.o. at bedtime, isosorbide mononitrate 60 mg p.o. a.m., losartan 25 mg p.o. daily, metformin 500 mg p.o. b.i.d., Tradjenta 5 mg p.o. p.m. FAMILY HISTORY: No family history on file. REVIEW OF SYSTEMS: As per HPI. Could not get complete review of systems as the patient has dementia. Admission Exam Per Admitting Provider VITAL SIGNS: Temperature afebrile, pulse 82, respiratory rate 16, blood pressure 137/67, oxygen 97% on room air. HEENT: Pupils equal, round and reactive to light. Oral mucosa moist. NECK: No JVD, no neck masses. CARDIOVASCULAR: S1 and S2 heard. Regular rate and rhythm. No murmur, no gallop. RESPIRATORY SYSTEM: Normal AP diameter. No accessory muscle use. No wheezing, no crackles. ABDOMEN: Soft, bowel sounds present, nontender, no distention. CENTRAL NERVOUS SYSTEM: Alert and oriented to name and place. Obeys simple commands. Moves extremities. EXTREMITIES: No edema, no erythema. Principal Diagnosis Weakness Syncope secondary to orthostasis Discharge Exam GENERAL: Alert and oriented x3. NAD, on RA. HEENT: No pallor, no icterus. Pupils equal, round and reactive to light. Oral mucosa moist. NECK: No JVD, no neck masses. HEART: S1 and S2 heard. Regular rate and rhythm. No murmur, no gallop. RESPIRATORY SYSTEM: Normal AP diameter. No accessory muscle use. No wheezing, no crackles. ABDOMEN: Soft, bowel sounds present, nontender, no distention. CENTRAL NERVOUS SYSTEM: No facial droop. Speech is clear. Obeys simple commands. Moves extremities. EXTREMITIES: No edema, no erythema seen. Discharge Data Allergies Allergy/AdvReac Type Severity Reaction Status Date / Time No Known Allergies Allergy Unverified 06/01/21 21:03 Consultations 06/01/21 20:08 ED Decision to Admit Stat Ordered Studies 06/01/21 19:26 CT angio head wo/w Stat CT angio neck with con Stat 06/01/21 21:27 CT abd pelvis wo con Stat Hospital Course (1) Syncope: 76-year-old female with past medical history significant for CAD, status post multiple coronary interventions, stent for rotational arthrectomy, chronic systolic CHF, ischemic cardiomyopathy, EF of around 30%, hypertension, hyperlipidemia, chronic kidney disease stage III, type 2 diabetes, progressive dementia, who recently had cardiac catheterization in [place] in March 2021 which showed multivessel disease involving small branch arteries, stents were patent, and medical management recommended. She was started on Brilinta at that time. She presented 06/02 with syncope and fall. She lives with her and ambulates without any support but walks slowly. She reports feeling weak as well lately. Her recent medication changes are Lasix reduced to 20 mg and Imdur increased to 60 mg. As per patient, she did not have any nausea/dizziness/sweating/palpitation/loss of consciousness surrounding fall. She was admitted here and monitored over telemetry. No new events here while in hospital. Orthostatic vitals were positive which resolved later on. We will continue with her home medications. Patient felt better on the day of discharge and as per RN patient was moving in the hallway with support without any dizziness but patient reports feeling weak. Will provide prescription for Rollator walker. Her one of the blood cultures were positive for cons not lugdunensis, likely contaminant, repeat blood culture negative, patient remained a febrile and was given one-time dose of vancomycin. Patient to follow-up with PCP within a week time of discharge. Following instructions were communicated at the point of discharge: Follow-up with primary care physician within 1 week time. Measure your blood pressure daily at home. Maintain a log and take it to your primary care physician during your visit. Take time and allow your body to adjust to a new position when you sit up from sleeping position or when you stand up from sitting position prior to resuming your movements to reduce the chances of fall. Total Time Total Time Spent Total Time Spent (In Minutes): 35 Discharge Plan Discharge Items Patient Disposition: Home - Self-Care Reason For Visit: SYNCOPE Discharge Diagnosis: Syncope likely secondary to orthostatics Activity: Per Instructions section Activity Comment: Take time to adjust in new position prior to starting movement. Non-emergency contact: Primary Care Provider Call non-emergency contact if: you have any medication questions, your symptoms worsen and your temperature is above 101 Follow-up/Referrals: Marika Neff MD [Primary Care Provider] - (Date & Time 06/09/2021 3:00 PM Provider Leobardo Quinones MD [facility] ) Diet: Carb Consistent or DM2 Addtl Attending Provider Instructions: Follow-up with primary care physician within 1 week time. Measure your blood pressure daily at home. Maintain a log and take it to your primary care physician during your visit. Take time and allow your body to adjust to a new position when you sit up from sleeping position or when you stand up from sitting position prior to resuming your movements to reduce the chances of fall. Pending Studies at Discharge: Yes (06/01 and 06/03 blood culture final results.) Stand-Alone Forms: My [facility] [employer], Smoking Cessation Medications and DC Order Prescriptions: Continued metformin 500 mg Tablet 500 mg PO BID RF: 0 atorvastatin 80 mg Tablet 80 mg PO PM RF: 0 carvedilol 6.25 mg Tablet 6.25 mg PO BID RF: 0 donepezil 5 mg Tablet 5 mg PO HS RF: 0 aspirin 81 mg Tablet,Delayed Release (Dr/Ec) 81 mg PO DAILY RF: 0 alendronate 35 mg Tablet 35 mg PO WK RF: 0 losartan 25 mg Tablet 25 mg PO DAILY RF: 0 Basaglar KwikPen U-100 Insulin 100 unit/mL (3 mL) Insulin Pen 20 unit SUBCUT QAM RF: 0 Combigan 0.2-0.5 % Drops 1 drp OPR BID RF: 0 cholecalciferol (vitamin D3) [Vitamin D3] 50 mcg (2,000 unit) Tablet 50 mcg PO DAILY RF: 0 Tradjenta 5 mg Tablet 5 mg PO QPM RF: 0 Brilinta 90 mg Tablet 90 mg PO Q12H RF: 0 dapagliflozin 10 mg Tablet 10 mg PO QAM RF: 0 isosorbide mononitrate 60 mg Tablet Extended Release 24 Hr 60 mg PO QAM Qty: 30 RF: 0 Discharge Orders: Discharge Order (Routine); Ordered 06/04/21 Ordered By: Mirella Martinez/Other Patient Handouts: Managing Type 2 Diabetes Admission Data Admit Date/Time: 06/02/21 01:14 Attending Provider: Mirella Padgett Admit Provider: Renato Belcher Primary Care Provider: Marika Neff Other Providers: Renato Belcher Other Interventions: Discharge Summary Assessment (RN) Last Done: 06/04/21 16:03
== END 2021-06-04 17:00 | disposition home or self-care (01) | DRG 312 ==
LOC: ED 19:25 → EDINP 06-02 01:14 → SUATTDRO 06-02 01:14 → EDINP 06-02 02:37 → 2N 06-02 15:19